=== PATIENT | male | born 1950 | race Caucasian/White ===

== ENCOUNTER 2020-10-21 09:24 | Inpatient (IN) ==
[2020-10-21] MEDS ORDERED: 0.9 % SODIUM CHLORIDE 1,000 ML IV ONE ×2 (09:38→09:47)
[2020-10-21] MEDS ORDERED: IBUPROFEN 600 MG TABLET PO ONE (09:47)
[2020-10-21] MEDS ORDERED: LEVOFLOXACIN 750 MG/150 ML BAG IV ONE (09:47)
[2020-10-21] MEDS ORDERED: ACETAMINOPHEN 325 MG TABLET PO ONE (09:47)
[2020-10-21] MEDS ORDERED: IPRATROPIUM/ALBUTEROL 3 ML AMPUL.NEB NEB ONE (09:52)
[2020-10-21] MEDS ORDERED: DEXAMETHASONE 10 MG/ML VIAL IV ONE (09:52)
--- NOTE | 2020-10-21 09:59 | Emergency Department Note ---
Fever HPI General Chief Complaint: Fever Stated Complaint: fever Time Seen by Provider: 10/21/20 09:42 Source: patient, EMS, RN notes reviewed, old records reviewed and other (residential records) Mode of arrival: EMS Limitations: no limitations History of Present Illness HPI Narrative: Narrative: MD complaint: fever, malaise and weakness Onset (ago): day(s) (1) Maximum Temperature: 105.4 F Temperature Source: tympanic Context: recent procedure (Had second Covid shot day prior to arrival) Associated symptoms: Reports chills, rigors, myalgias, cough, shortness of breath, nausea and confusion; Denies headache, rhinorrhea, nasal congestion, sore throat, stiff neck, chest pain, abdominal pain, vomiting, diarrhea, dysuria, rash, night sweats and weight loss Improves with: nothing Worsens with: in morning Treatments prior to arrival fever: none Related Data Home Medications Medication Instructions Recorded Confirmed acetaminophen [Tylenol] 650 mg PO Q6H PRN 10/21/20 10/21/20 apixaban [Eliquis] 2.5 mg PO BID 10/21/20 10/21/20 baclofen 5 mg PO QDAY 10/21/20 10/21/20 bisacodyl [Dulcolax (bisacodyl)] 10 mg NC ONCE 10/21/20 10/21/20 carvedilol 3.125 mg PO DAILY 10/21/20 10/21/20 cholecalciferol (vitamin D3) 25 mcg PO QDAY 10/21/20 10/21/20 [Vitamin D3] furosemide [Lasix] 40 mg PO BID 10/21/20 10/21/20 glucagon 1 mg PRN PRN 10/21/20 10/21/20 hydrocodone-acetaminophen 1 tab PO PRN PRN 10/21/20 10/21/20 insulin lispro 0 unit SUBCUT PRN PRN 10/21/20 10/21/20 ipratropium-albuterol [Combivent 1 puff INHALATION PRN PRN 10/21/20 10/21/20 Respimat] lisinopril 2.5 mg PO QDAY 10/21/20 10/21/20 magnesium hydroxide [Milk of 30 ml PO PRN PRN 10/21/20 10/21/20 Magnesia] melatonin 6 mg PO HS 10/21/20 10/21/20 metformin 500 mg PO BID 10/21/20 10/21/20 ondansetron HCl [Zofran] 8 mg PO Q8H PRN 10/21/20 10/21/20 paroxetine HCl 30 mg PO DAILY 10/21/20 10/21/20 ropinirole 4 mg PO TID 10/21/20 10/21/20 sodium phosphates [Fleet Enema] 118 ml NC ONCE 10/21/20 10/21/20 sodium polystyrene sulfonate 15 g PO QDAY 10/21/20 10/21/20 tamsulosin 0.4 mg PO QDAY 10/21/20 10/21/20 Allergies Allergy/AdvReac Type Severity Reaction Status Date / Time codeine Allergy Verified 10/21/20 09:38 Penicillins Allergy Verified 10/21/20 09:38 Review of Systems ROS ROS Narrative: Narrative: All systems ED: reviewed and negative except as stated. [facility] Narrative Patient History Narrative: Narrative: Medical/Surgical/Family History All Active Problems (Updated 10/21/20 @ 10:56 by Arthur Danielson MD) Pneumonia due to 2019 novel coronavirus (Acute) Social History Smoking Status: Never smoker Exam Narrative Narrative: Narrative: General Limitations: no limitations General appearance: Present alert, in distress and malaise Head Head: Present atraumatic and normocephalic Eye Eye: Present normal appearance, PERRL and EOMI ENT ENT: Present normal exam and mucous membranes dry Neck Neck: Present normal inspection and full ROM Chest Chest: Present normal inspection; Absent tenderness Respiratory Respiratory: Present respiratory distress, rales/crackles, wheezes and decreased breath sounds Cardiovascular Cardiovascular: Present regular rate, normal rhythm and systolic murmur Adbominal Abdominal: Present soft; Absent distention, tenderness, guarding and rebound Extremities Extremities: Present normal inspection, full ROM, pedal edema and pretibial edema; Absent tenderness and normal capillary refill Back Back: Present normal inspection; Absent CVA tenderness (R) and CVA tenderness (L) Neurological Neurological: Present alert Psychiatric Psychiatric: Present normal affect and normal mood Skin Skin: Present hot, dry and rash Course Vital Signs Vital signs: Vital Signs Temperature 105.4 F H 10/21/20 09:28 Pulse Rate 99 H 10/21/20 09:28 Respiratory Rate 28 H 10/21/20 09:28 Blood Pressure 128/73 10/21/20 09:28 Pulse Oximetry (%) 92 10/21/20 09:28 Temperature 102.8 F H 10/21/20 10:45 Pulse Rate 73 10/21/20 11:45 Respiratory Rate 34 H 10/21/20 11:45 Blood Pressure 96/75 10/21/20 11:45 Pulse Oximetry (%) 91 10/21/20 11:45 MDM MDM Narrative Medical decision making narrative: Narrative: 70-year-old male with high fever positive Covid pneumonia on chest x-ray with a normal white count. History of congestive heart failure with mildly elevated BNP. Patient has an elevated troponin at 0.06 with suspect this is demand leakage as opposed to an ischemic event. Patient is defervesced seen with his fever has been treated with Tylenol Motrin IV fluids and dexamethasone. Patient will be admitted Differential Diagnosis Differential Diagnosis: Covid pneumonia, congestive heart failure, community- acquired pneumonia. Medical Records Medical records reviewed: Yes I reviewed the patient's medical records. Lab Data Lab results reviewed: Yes I reviewed the patient's lab results. Result diagrams: 10/21/20 09:51 10/21/20 09:51 Labs: Lab Results 10/21/20 10/21/20 10/21/20 Range/Units 09:51 09:51 09:51 WBC 6.4 (4.5-11.0) K/mcL RBC 3.72 L (4.50-5.90) M/mcL Hgb 10.7 L (13.5-16.5) g/dL Hct 34.3 L (41.0-55.0) % MCV 92.2 (80.0-100.0) fL MCH 28.8 (26.0-34.0) pg MCHC 31.2 (31.0-36.0) g/dL RDW 15.6 H (11.5-14.5) % Plt Count 126 L (140-440) K/mcL MPV 10.9 H (7.4-10.4) fL Neut % (Auto) 76.4 (38.0-78.0) % Lymph % (Auto) 18.2 (15.0-49.0) % [place] % (Auto) 5.1 (1.0-12.0) % Eos % (Auto) 0 (0.0-7.0) % Baso % (Auto) 0.3 (0.0-2.0) % Lymph # (Auto) 1.17 L (1.50-4.80) K/mcL [place] # (Auto) 0.33 (0.10-0.90) K/mcL Eos # (Auto) 0 (0.00-0.70) K/mcL Baso # (Auto) 0.02 (0.00-0.20) K/mcL Absolute Neutrophils 4.90 (1.80-8.00) K/mcL PT 17.0 H (11.9-14.5) sec INR 1.3 H (0.9-1.1) VBG Lactic Acid (0.5-2.0) mmol/L Sodium 136 (133-145) mmol/L Potassium 4.2 (3.3-5.1) mmol/L Chloride 99 (96-108) mmol/L Carbon Dioxide 27 (22-30) mmol/L Anion Gap 10.0 (8.0-16.0) BUN 24 H (8-23) mg/dL Creatinine 1.4 H (0.7-1.2) mg/dL GFR Calculation 51 Glucose 157 H (70-105) mg/dL Calcium 8.6 (8.6-10.4) mg/dL Total Bilirubin 0.7 (0.1-1.0) mg/dL AST 12 (<40) U/L ALT 8 (<40) U/L Alkaline Phosphatase 76 (39-117) U/L Troponin T (<0.03) ng/mL NT-Pro-B Natriuret Pep 2323.0 H (<125.0) pg/mL Total Protein 6.7 (5.9-8.4) gm/dL Albumin 3.1 L (3.2-5.2) gm/dL Globulin 3.6 (2.2-3.7) gm/dL Albumin/Globulin Ratio 0.9 L (1.0-2.3) 10/21/20 10/21/20 Range/Units 09:51 09:51 WBC (4.5-11.0) K/mcL RBC (4.50-5.90) M/mcL Hgb (13.5-16.5) g/dL Hct (41.0-55.0) % MCV (80.0-100.0) fL MCH (26.0-34.0) pg MCHC (31.0-36.0) g/dL RDW (11.5-14.5) % Plt Count (140-440) K/mcL MPV (7.4-10.4) fL Neut % (Auto) (38.0-78.0) % Lymph % (Auto) (15.0-49.0) % [place] % (Auto) (1.0-12.0) % Eos % (Auto) (0.0-7.0) % Baso % (Auto) (0.0-2.0) % Lymph # (Auto) (1.50-4.80) K/mcL [place] # (Auto) (0.10-0.90) K/mcL Eos # (Auto) (0.00-0.70) K/mcL Baso # (Auto) (0.00-0.20) K/mcL Absolute Neutrophils (1.80-8.00) K/mcL PT (11.9-14.5) sec INR (0.9-1.1) VBG Lactic Acid 1.2 (0.5-2.0) mmol/L Sodium (133-145) mmol/L Potassium (3.3-5.1) mmol/L Chloride (96-108) mmol/L Carbon Dioxide (22-30) mmol/L Anion Gap (8.0-16.0) BUN (8-23) mg/dL Creatinine (0.7-1.2) mg/dL GFR Calculation Glucose (70-105) mg/dL Calcium (8.6-10.4) mg/dL Total Bilirubin (0.1-1.0) mg/dL AST (<40) U/L ALT (<40) U/L Alkaline Phosphatase (39-117) U/L Troponin T 0.06 H* (<0.03) ng/mL NT-Pro-B Natriuret Pep (<125.0) pg/mL Total Protein (5.9-8.4) gm/dL Albumin (3.2-5.2) gm/dL Globulin (2.2-3.7) gm/dL Albumin/Globulin Ratio (1.0-2.3) ED POC Tests ED POC Tests: JET - Influenza A Negative JET - Influenza B Negative JET - SARS Antigen Positive Radiology Data Radiology results reviewed: Yes I reviewed the patient's radiology results. Radiology results narrative: CLINICAL INFORMATION: FEVER COMPARISON: 07/10/2010 FINDINGS: Heart is mildly enlarged. Mediastinum is unremarkable. Pulmonary vessels are mildly congested and the upper lobes. Equivocal interstitial edema appreciated. Small bibasilar infiltrates noted. No effusions IMPRESSION: Mild CHF Small bibasilar infiltrates Interpreted and Authenticated by: Singh Byrne 10/21/20 EKG Data EKG #1: EKG attestation: Yes I reviewed and interpreted this EKG. EKG shows normal: sinus rhythm Rate: normal (83) Rhythm: NSR [place]/QRS: LAHB/LAFB Voltage: decreased voltage throughout Interpretation: nonspecific ST-T wave changes Pulse Oximetry Data Pulse Ox %: 90 Interpretation: 90% on room air hypoxic. Discharge Plan Patient/Caregiver Discharge Instructions Pt seen by CLARIFIER/PA only: No Clinical Impression: Pneumonia due to 2019 novel coronavirus Patient Disposition: Xfer As Inpt ([facility]) Follow up with: No,PCP [Referring] - Prescriptions: No Action Combivent Respimat 20-100 mcg/actuation Mist 1 puff INHALATION PRN PRN (Reason: Wheezing) RF: 0 furosemide [Lasix] 40 mg Tablet 40 mg PO BID RF: 0 hydrocodone-acetaminophen 5-325 mg tablet 1 tab PO PRN PRN (Reason: Pain) RF: 0 carvedilol 3.125 mg tablet 3.125 mg PO DAILY RF: 0 sodium polystyrene sulfonate 15 gram/60 mL Suspension 15 g PO QDAY RF: 0 paroxetine HCl 30 mg tablet 30 mg PO DAILY RF: 0 baclofen 5 mg Tablet 5 mg PO QDAY RF: 0 lisinopril 2.5 mg Tablet 2.5 mg PO QDAY RF: 0 ropinirole 4 mg Tablet 4 mg PO TID RF: 0 Fleet Enema 19-7 gram/118 mL Enema 118 ml NC ONCE RF: 0 bisacodyl [Dulcolax (bisacodyl)] 10 mg Suppository 10 mg NC ONCE RF: 0 magnesium hydroxide [Milk of Magnesia] 400 mg/5 mL Suspension 30 ml PO PRN PRN (Reason: Constipation) RF: 0 glucagon 1 mg Kit 1 mg PRN PRN (Reason: blood sugar) RF: 0 metformin 500 mg Tablet 500 mg PO BID RF: 0 ondansetron HCl [Zofran] 8 mg Tablet 8 mg PO Q8H PRN (Reason: Nausea) RF: 0 acetaminophen [Tylenol] 325 mg Tablet 650 mg PO Q6H PRN (Reason: Pain) RF: 0 tamsulosin 0.4 mg Capsule 0.4 mg PO QDAY RF: 0 insulin lispro 100 unit/mL Cartridge 0 unit SUBCUT PRN PRN (Reason: blood sugar) RF: 0 cholecalciferol (vitamin D3) [Vitamin D3] 25 mcg (1,000 unit) Tablet 25 mcg PO QDAY RF: 0 Eliquis 2.5 mg Tablet 2.5 mg PO BID RF: 0 melatonin 12 mg Tablet 6 mg PO HS RF: 0
--- NOTE | 2020-10-21 10:42 | XRay Report ---
CLINICAL INFORMATION: FEVER COMPARISON: 07/10/2010 FINDINGS: Heart is mildly enlarged. Mediastinum is unremarkable. Pulmonary vessels are mildly congested and the upper lobes. Equivocal interstitial edema appreciated. Small bibasilar infiltrates noted. No effusions IMPRESSION: Mild CHF Small bibasilar infiltrates Interpreted and Authenticated by: Singh Byrne 10/21/20
[2020-10-21 10:47] LABS: Basophils # (Auto) 0.02 K/mcL (0.00-0.20); Basophils % (Auto) 0.3 % (0.0-2.0); Eosinophils # (Auto) 0 K/mcL (0.00-0.70); Eosinophils % (Auto) 0 % (0.0-7.0); Hematocrit 34.3 % (41.0-55.0); Hemoglobin 10.7 g/dL (13.5-16.5); Lymphocytes # (Auto) 1.17 K/mcL (1.50-4.80); Lymphocytes % (Auto) 18.2 % (15.0-49.0); Mean Cell Volume 92.2 fL (80.0-100.0); Mean Corpuscular HGB Conc 31.2 g/dL (31.0-36.0); Mean Platelet Volume 10.9 fL (7.4-10.4); Monocytes # (Auto) 0.33 K/mcL (0.10-0.90); Monocytes % (Auto) 5.1 % (1.0-12.0); Neutrophils % (Auto) 76.4 % (38.0-78.0); Platelet Count 126 K/mcL (140-440); RBC 3.72 M/mcL (4.50-5.90); Red Cell Distribution Width 15.6 % (11.5-14.5); WBC 6.4 K/mcL (4.5-11.0)
[2020-10-21 10:57] LABS: INR 1.3 (0.9-1.1)
[2020-10-21 11:10] LABS: ALT/SGPT 8 U/L (<40); AST/SGOT 12 U/L (<40); Albumin 3.1 gm/dL (3.2-5.2); Albumin/Globulin Ratio 0.9 (1.0-2.3); Alkaline Phosphatase 76 U/L (39-117); Bilirubin,Total 0.7 mg/dL (0.1-1.0); Blood Urea Nitrogen 24 mg/dL (8-23); Calcium 8.6 mg/dL (8.6-10.4); Carbon Dioxide 27 mmol/L (22-30); Chloride 99 mmol/L (96-108); Globulin 3.6 gm/dL (2.2-3.7); Glomerular Filtration Rate 51; Glucose 157 mg/dL (70-105)
--- NOTE | 2020-10-21 12:01 | Internal Med History&Physical ---
HPI History of Present Illness Patient information: Note initiated : 10/21/20 at 11:58 am Service Date, if different from initiated Date: [] Patient: Chente Whitfield a 70 y/o M admitted on for fever. Chief Complaint: Increasing shortness of breath/fever and confusion History of present illness: Mr. Whitfield is a 70 year old M resident of [facility] who presents to the ER with increasing weakness confusion, failure to thrive and high-grade fever. Initial work-up was consistent with Covid pneumonia, patient was started on steroids/bronchodilators/crystalloids and subsequently hospitalist service consulted. Patient is currently on 2 L oxygen maintaining sats 95. T-max 105.4. Troponin I 06, BNP 2323, initial GCS 7 At the time of my evaluation patient remains groggy and drowsy. Unable to provide history. Most of the history was obtained from review of medical records and ER physician. From review of medical records patient carries a history of chronic lymphedema/CKD stage III/DJD/HTN/DM type II/anxiety disorder/BPH Review of systems 10 point review system was attempted but could not performed PFSH PFSH All Active Problems (Updated 10/21/20 @ 10:56 by Arthur Danielson MD) Pneumonia due to 2019 novel coronavirus (Acute) MEDS/ALLERGIES Home Medications and Allergies Home Medications Medication Instructions Recorded Confirmed Type acetaminophen [Tylenol] 650 mg PO Q6H PRN 10/21/20 10/21/20 History apixaban [Eliquis] 2.5 mg PO BID 10/21/20 10/21/20 History baclofen 5 mg PO QDAY 10/21/20 10/21/20 History bisacodyl [Dulcolax (bisacodyl)] 10 mg NC ONCE 10/21/20 10/21/20 History carvedilol 3.125 mg PO DAILY 10/21/20 10/21/20 History cholecalciferol (vitamin D3) 25 mcg PO QDAY 10/21/20 10/21/20 History [Vitamin D3] furosemide [Lasix] 40 mg PO BID 10/21/20 10/21/20 History glucagon 1 mg PRN PRN 10/21/20 10/21/20 History hydrocodone-acetaminophen 1 tab PO PRN PRN 10/21/20 10/21/20 History insulin lispro 0 unit SUBCUT PRN PRN 10/21/20 10/21/20 History ipratropium-albuterol [Combivent 1 puff INHALATION PRN PRN 10/21/20 10/21/20 History Respimat] lisinopril 2.5 mg PO QDAY 10/21/20 10/21/20 History magnesium hydroxide [Milk of 30 ml PO PRN PRN 10/21/20 10/21/20 History Magnesia] melatonin 6 mg PO HS 10/21/20 10/21/20 History metformin 500 mg PO BID 10/21/20 10/21/20 History ondansetron HCl [Zofran] 8 mg PO Q8H PRN 10/21/20 10/21/20 History paroxetine HCl 30 mg PO DAILY 10/21/20 10/21/20 History ropinirole 4 mg PO TID 10/21/20 10/21/20 History sodium phosphates [Fleet Enema] 118 ml NC ONCE 10/21/20 10/21/20 History sodium polystyrene sulfonate 15 g PO QDAY 10/21/20 10/21/20 History tamsulosin 0.4 mg PO QDAY 10/21/20 10/21/20 History Allergies Allergy/AdvReac Type Severity Reaction Status Date / Time Penicillins AdvReac Intermediate Verified 10/21/20 14:44 codeine AdvReac Mild Verified 10/21/20 14:44 EXAM Constitutional Vitals: Temp Pulse Resp BP Pulse Ox 100.8 F H 73 34 H 96/75 91 10/21/20 11:54 10/21/20 11:45 10/21/20 11:45 10/21/20 11:45 10/21/20 11:45 Confused and drowsy Head normocephalic Oral cavity dry No ear nose discharge Eye movement symmetrical Neck supple no lymphadenopathy S1-S2 occasionally irregular Nonlabored breathing Nondistended nontender abdomen Lower extremity bilateral lymphedema, no cyanosis Skin no suspicious lesion Psych no hallucination Neuro drowsy, unable to perform DATA Data Completed and Pending Labs: Labs from last 24 hours 10/21/20 10/21/20 10/21/20 09:51 09:51 09:51 WBC RBC Hgb Hct MCV MCH MCHC RDW Plt Count MPV Neut % (Auto) Lymph % (Auto) [place] % (Auto) Eos % (Auto) Baso % (Auto) Lymph # (Auto) [place] # (Auto) Eos # (Auto) Baso # (Auto) Absolute Neutrophils PT INR VBG Lactic Acid 1.2 Sodium 136 Potassium 4.2 Chloride 99 Carbon Dioxide 27 Anion Gap 10.0 BUN 24 H Creatinine 1.4 H GFR Calculation 51 Glucose 157 H Calcium 8.6 Total Bilirubin 0.7 AST 12 ALT 8 Alkaline Phosphatase 76 Troponin T 0.06 H* NT-Pro-B Natriuret Pep 2323.0 H Total Protein 6.7 Albumin 3.1 L Globulin 3.6 Albumin/Globulin Ratio 0.9 L 10/21/20 10/21/20 09:51 09:51 WBC 6.4 RBC 3.72 L Hgb 10.7 L Hct 34.3 L MCV 92.2 MCH 28.8 MCHC 31.2 RDW 15.6 H Plt Count 126 L MPV 10.9 H Neut % (Auto) 76.4 Lymph % (Auto) 18.2 [place] % (Auto) 5.1 Eos % (Auto) 0 Baso % (Auto) 0.3 Lymph # (Auto) 1.17 L [place] # (Auto) 0.33 Eos # (Auto) 0 Baso # (Auto) 0.02 Absolute Neutrophils 4.90 PT 17.0 H INR 1.3 H VBG Lactic Acid Sodium Potassium Chloride Carbon Dioxide Anion Gap BUN Creatinine GFR Calculation Glucose Calcium Total Bilirubin AST ALT Alkaline Phosphatase Troponin T NT-Pro-B Natriuret Pep Total Protein Albumin Globulin Albumin/Globulin Ratio A/P Narrative A/P Narrative: * COVID-19 pneumonia-inpatient admission/initiate remdesivir/dexamethasone, thrombosis prophylaxis/coag and inflammatory markers, maintain COVID-19 precautions. Empiric antibiotic coverage * Acute hypoxic respiratory failure secondary to Covid pneumonia/history of CHF. Continue with low flow oxygen/pulmonary toilet and transition to noninvasive mechanical ventilation if deteriorating status/worsening oxygenation on ABG/interval chest imaging. Gentle diuresis * Poorly controlled diabetes type 2 continue basal prandial insulin/CC diet * Anticoagulation continue apixaban * Hypertension/nursing lymphedema -continue home dose Coreg/DINESH inhibitor/diuretics * History of COPD continue bronchodilators * Anxiety disorder-hold paroxetine due to QT prolongation until patient off azithromycin * Full code Plan * Inpatient admission with close monitoring and COVID-19 precautions * Noninvasive mechanical ventilation if indicated * Serial imaging/ABG if deteriorating respiratory status/coag inflammatory markers * Remdesivir/dexamethasone/empiric antibiotics/thrombosis prophylaxis * Pre-existing medical condition management on home meds * Directed therapies/nutrition support/early mobilization * Discharge planning Time Spent With Patient Time: Total time spent is greater than 50% in coordination of care (as documented) at patient's floor/unit and/or counseling patient:
[2020-10-21] MEDS ORDERED: ACETAMINOPHEN 650 MG/65 ML BAG IV PRN (13:49)
[2020-10-21] MEDS ORDERED: POTASSIUM CHLORIDE 20 MEQ PACKET PO PRN (13:49)
[2020-10-21] MEDS ORDERED: MAGNESIUM HYDROXIDE 30 ML ORAL.SUSP PO PRN ×2 (13:49→14:00)
[2020-10-21] MEDS ORDERED: ACETAMINOPHEN 325 MG TABLET PO PRN (13:49)
[2020-10-21] MEDS ORDERED: MAGNESIUM SULFATE 2 GM/50 ML BAG IV PRN (13:49)
[2020-10-21] MEDS ORDERED: DEXTROSE 50% 50 ML VIAL IV PRN (13:49)
[2020-10-21] MEDS ORDERED: ONDANSETRON 4 MG ODT TABLET SL PRN (13:49)
[2020-10-21] MEDS ORDERED: BISACODYL 10 MG SUPP.RECT PR PRN (13:49)
[2020-10-21] MEDS ORDERED: BISACODYL 10 MG SUPP.RECT PR SCH (13:49)
[2020-10-21] MEDS ORDERED: HYDROcodone/APAP 5/325MG TABLET PO PRN (13:49)
[2020-10-21] MEDS ORDERED: METOPROLOL TARTRATE 5 MG/5 ML VIAL IV PRN (13:49)
[2020-10-21] MEDS ORDERED: ONDANSETRON 4 MG/2 ML VIAL IV PRN (13:49)
[2020-10-21] MEDS ORDERED: POLYETHYLENE GLYCOL 3350 17 GM PACKET PO PRN (13:49)
[2020-10-21] MEDS ORDERED: NEUTRA PHOS 1 PACKET PO PRN (13:49)
[2020-10-21] MEDS ORDERED: IPRATROPIUM/ALBUTEROL SULFATE 1 PUFF INHALER INH PRN ×2 (13:49→14:00)
[2020-10-21] MEDS ORDERED: POTASSIUM CHLORIDE 40 MEQ in DEXTROSE 5% IN WATER 500 ML IV PRN (13:49)
[2020-10-21] MEDS ORDERED: guaiFENesin/CODEINE 10 ML UDC PO PRN (13:49)
[2020-10-21] MEDS ORDERED: DEXTROSE 31 GM ORAL.SUSP PO PRN (13:49)
[2020-10-21] MEDS ORDERED: REMDESIVIR 200 MG in 0.9 % SODIUM CHLORIDE 250 ML IV ONE (15:00)
[2020-10-21 15:07] LABS: C-Reactive Protein 9.6 mg/dL (0.03-0.80)
[2020-10-21 15:17] LABS: Ferritin 104.2 ng/mL (30.0-400.0)
[2020-10-21] MEDS: AZITHROMYCIN 500 MG in DEXTROSE 5% IN WATER 250 ML IV SCH (16:22)
[2020-10-21] MEDS: 0.9 % SODIUM CHLORIDE 10 ML SYRINGE IV SCH ×3 (16:23→21:39)
[2020-10-21] MEDS: INSULIN LISPRO 1 UNIT/0.01 ML UNIT SQ SCH ×2 (18:18→21:38)
[2020-10-21] MEDS: cefTRIAXone 2 GM in DEXTROSE 5% IN WATER 50 ML IV SCH (18:18)
[2020-10-21] MEDS: rOPINIRole 1 MG TABLET PO SCH (18:18)
[2020-10-21] MEDS: 0.9 % SODIUM CHLORIDE 500 ML IV SCH (18:54)
[2020-10-21] MEDS: DOCUSATE SODIUM 100 MG CAPSULE PO SCH (21:38)
[2020-10-21] MEDS: FUROSEMIDE 40 MG TABLET PO SCH (21:38)
[2020-10-21] MEDS: SENNOSIDES/DOCUSATE SODIUM 1 TAB TABLET PO SCH (21:38)
[2020-10-21] MEDS: MELATONIN 3 MG TABLET PO SCH (21:39)
[2020-10-21] MEDS: APIXABAN 5 MG TABLET PO SCH (21:39)
[2020-10-22] MEDS: rOPINIRole 1 MG TABLET PO SCH ×4 (00:11→21:56)
[2020-10-22] MEDS: 0.9 % SODIUM CHLORIDE 10 ML SYRINGE IV SCH ×3 (06:19→21:56)
[2020-10-22] MEDS: INSULIN LISPRO 1 UNIT/0.01 ML UNIT SQ SCH ×4 (07:47→21:56)
[2020-10-22] MEDS: TAMSULOSIN 0.4 MG CAPSULE PO SCH (08:48)
[2020-10-22] MEDS: LISINOPRIL 2.5 MG TABLET PO SCH ×2 (08:48→10:45)
[2020-10-22] MEDS: MULTIVIT,THER IRON,CA,FA & MIN 1 TABLET PO SCH (08:48)
[2020-10-22] MEDS: APIXABAN 5 MG TABLET PO SCH ×2 (08:49→21:55)
[2020-10-22] MEDS: sitaGLIPtin 100 MG TABLET PO SCH (08:50)
[2020-10-22] MEDS: DOCUSATE SODIUM 100 MG CAPSULE PO SCH ×2 (08:50→21:55)
[2020-10-22] MEDS: cefTRIAXone 2 GM in DEXTROSE 5% IN WATER 50 ML IV SCH (08:51)
[2020-10-22] MEDS: FUROSEMIDE 40 MG TABLET PO SCH ×2 (08:51→21:54)
[2020-10-22] MEDS: VITAMIN D3 1,000 UNIT TABLET PO SCH (08:51)
[2020-10-22] MEDS: BACLOFEN 10 MG TABLET PO SCH (08:51)
[2020-10-22] MEDS ORDERED: DEXAMETHASONE 4 MG TABLET PO SCH (09:00)
[2020-10-22] MEDS: AZITHROMYCIN 500 MG in DEXTROSE 5% IN WATER 250 ML IV SCH (10:45)
[2020-10-22] MEDS: CARVEDILOL 3.125 MG TABLET PO SCH (10:45)
--- NOTE | 2020-10-22 11:13 | Internal Med Progress Note ---
SUBJECTIVE Subjective Patient information: Note initiated : 10/22/20 at 11:12 am Service Date, if different from initiated Date: [] Patient: Chente Whitfield 70 y/o M admitted on 10/21/20 for Fever. Chief Complaint: [] Interval history: Mr. Whitfield is a 70 year old M resident of [facility] who presents to the ER with increasing weakness confusion, failure to thrive and high-grade fever. Initial work-up was consistent with Covid pneumonia, patient was started on steroids/bronchodilators/crystalloids and subsequently hospitalist service consulted. Patient is currently on 2 L oxygen maintaining sats 95. T-max 105.4. Troponin I 06, BNP 2323, initial GCS 7 At the time of my evaluation patient remains groggy and drowsy. Unable to provide history. Most of the history was obtained from review of medical records and ER physician. From review of medical records patient carries a history of chronic lymphedema/CKD stage III/DJD/HTN/DM type II/anxiety disorder/BPH 5/6-patient doing better. No overnight events. Currently on 1-1/2 L oxygen. Remdesivir discontinued. Continues steroids/diuretics/antibiotic coverage in setting of pneumonia. Echocardiogram 09/30- 55% EF. Mycoplasma and strep pneumo negative. Clinically improving. Continue gentle diuresis/COVID-19 treatment. Wean oxygen as tolerated Constitutional Vitals: Vital Signs Temp Pulse Resp BP Pulse Ox 97.3 F 68 14 110/52 98 10/22/20 08:00 10/22/20 08:00 10/22/20 08:00 10/22/20 08:00 10/22/20 08:00 Period Temp Pulse Resp BP Sys/Hill Pulse Ox Last 24 Hr 95.0 F-100.8 F 57-80 14-34 90-160/45-90 86-98 Intake and Output 10/21/20 10/22/20 10/22/20 21:59 05:59 13:59 Intake Total 670 250 290 Output Total 1 1 250 Balance 669 249 40 Weight 92.941 kg Alert oriented Nonlabored breathing No anxiety 1.5 years oxygen Intake & Output: Intake & Output 10/21/20 10/22/20 10/22/20 21:59 05:59 13:59 Intake Total 670 250 290 Output Total 1 1 250 Balance 669 249 40 Weight 92.941 kg Intake: IV 550 50 Zithromax 500 mg In Dextrose 5% 250 in Water 250 ml @ 250 mls/hr IV Q24H [facility] Rx#:[id number] Veklury 200 mg In Sodium 250 Chloride 0.9% 250 ml @ 500 mls/ hr IV ONCE ONE Rx#:[id number] Rocephin 2 gm In Dextrose 5% in 50 50 Water 50 ml @ 100 mls/hr IV Q24H [facility] Rx#:[id number] Oral 120 250 240 Output: Void Amount 250 # of times incontinent of urine 1 1 Other: Meal Breakfast Percent of Meal Consumed 50% Feeding Ability Independent Urine Appearance Clear Urine Color Bright Yellow Urine Odor Strong Normal OBJ DATA Labs CBC & Chem 7: 10/21/20 09:51 10/21/20 09:51 Labs: Abnormal Lab Results 10/21/20 10/21/20 10/21/20 09:51 09:51 09:51 RBC Hgb Hct RDW Plt Count MPV Lymph # (Auto) PT INR BUN 24 H Creatinine 1.4 H Glucose 157 H Troponin T 0.06 H* C-Reactive Protein 9.60 H NT-Pro-B Natriuret Pep 2323.0 H Albumin 3.1 L Albumin/Globulin Ratio 0.9 L 10/21/20 10/21/20 09:51 09:51 RBC 3.72 L Hgb 10.7 L Hct 34.3 L RDW 15.6 H Plt Count 126 L MPV 10.9 H Lymph # (Auto) 1.17 L PT 17.0 H INR 1.3 H BUN Creatinine Glucose Troponin T C-Reactive Protein NT-Pro-B Natriuret Pep Albumin Albumin/Globulin Ratio Meds: Medications Acetaminophen (Acetaminophen 325 Mg Tablet) 650 mg PO Q4-6HP PRN; Protocol PRN Reason: Per Pain Protocol/Fever > 101 Hydrocodone Bitart/Acetaminophen (Hydrocodone/Apap 5/325mg Tablet) 1 tab PO PRN PRN; Protocol PRN Reason: Pain Albuterol/Ipratropium (Ipratropium/Albuterol Sulfate 1 Puff Inhaler) 1 puff INH Q4-6HP PRN PRN Reason: Wheezing Apixaban (Apixaban 5 Mg Tablet) 2.5 mg PO BID [facility] Last Admin: 10/22/20 08:49 Dose: 2.5 mg Documented by: Baclofen (Baclofen 10 Mg Tablet) 5 mg PO QDAY [facility] Last Admin: 10/22/20 08:51 Dose: 5 mg Documented by: Bisacodyl (Bisacodyl 10 Mg Supp.Rect) 10 mg MS Q2-3DAYS PRN PRN Reason: Constipation Carvedilol (Carvedilol 3.125 Mg Tablet) 3.125 mg PO QAC [facility] Last Admin: 10/22/20 10:45 Dose: 3.125 mg Documented by: Dexamethasone (Dexamethasone 4 Mg Tablet) 6 mg PO DAILY [facility] Last Admin: 10/22/20 08:49 Dose: 6 mg Documented by: Dextrose (Dextrose 50% 50 Ml Vial) 0 ml IV UD PRN PRN Reason: Hypoglycemia Diagnostic Test (Pha) (Accu-Chek 1 Each Strip) 1 each FS ACHS [facility] Last Admin: 10/22/20 07:47 Dose: 1 each Documented by: Docusate Sodium (Docusate Sodium 100 Mg Capsule) 100 mg PO BID [facility] Last Admin: 10/22/20 08:50 Dose: 100 mg Documented by: Furosemide (Furosemide 40 Mg Tablet) 40 mg PO BID [facility] Last Admin: 10/22/20 08:51 Dose: 40 mg Documented by: Glucose (Dextrose 31 Gm Oral.Susp) 15 gm PO PRN PRN PRN Reason: Hypoglycemia Guaifenesin/Codeine Phosphate (Guaifenesin/Codeine 10 Ml Udc) 10 ml PO Q4HP PRN PRN Reason: Cough Azithromycin 500 mg/ Dextrose 250 mls @ 250 mls/hr IV Q24H [facility]; Protocol Stop: 10/23/20 16:59 Last Admin: 10/22/20 10:45 Dose: 250 mls/hr Documented by: Potassium Chloride 40 meq/ (Dextrose) 520 mls @ 130 mls/hr IV UD PRN PRN Reason: K+ = or < 3.5 Magnesium Sulfate (Magnesium Sulfate) 2 gm in 50 mls @ 50 mls/hr IV UD PRN PRN Reason: MG = or < 1.7 Ceftriaxone Sodium 2 gm/ (Dextrose) 50 mls @ 100 mls/hr IV Q24H [facility]; Protocol Last Infusion: 10/22/20 09:25 Dose: Infused Documented by: Acetaminophen (Ofirmev) 650 mg in 65 mls @ 130 mls/hr IV Q6HP PRN; Protocol PRN Reason: Per Pain Protocol/Fever > 101 Sodium Chloride (Sodium Chloride 0.9%) 500 mls @ 20 mls/hr IV .Q24H [facility] Last Admin: 10/21/20 18:54 Dose: 20 mls/hr Documented by: Insulin Human Lispro (Insulin Lispro 1 Unit/0.01 Ml Unit) 0 unit SQ ACHS [facility]; Protocol Last Admin: 10/22/20 07:47 Dose: Not Given Documented by: Iron Carb/Multivit/[place]/Folic Acid (Multivit,Ther Iron,Ca,Fa & Min 1 Tablet) 1 tab PO DAILY [facility] Last Admin: 10/22/20 08:48 Dose: 1 tab Documented by: Lisinopril (Lisinopril 2.5 Mg Tablet) 2.5 mg PO DAILY [facility] Last Admin: 10/22/20 10:45 Dose: 2.5 mg Documented by: Magnesium Hydroxide (Magnesium Hydroxide 30 Ml Oral.Susp) 30 ml PO DAILYP PRN PRN Reason: Constipation Melatonin (Melatonin 3 Mg Tablet) 6 mg PO [facility] Last Admin: 10/21/20 21:39 Dose: Not Given Documented by: Metoprolol Tartrate (Metoprolol Tartrate 5 Mg/5 Ml Vial) 5 mg IV Q5M PRN PRN Reason: Heart Rate > 140 bpm Ondansetron HCl (Ondansetron 4 Mg Odt Tablet) 4 mg SL Q4-6HP PRN; Protocol PRN Reason: Nausea And Vomiting Ondansetron HCl (Ondansetron 4 Mg/2 Ml Vial) 4 mg IV Q4-6HP PRN; Protocol PRN Reason: Nausea And Vomiting Polyethylene Glycol (Polyethylene Glycol 3350 17 Gm Packet) 17 gm PO DAILYP PRN PRN Reason: Constipation Potassium Chloride (Potassium Chloride 20 Meq Packet) 40 meq PO DAILYP PRN PRN Reason: K+ < 3.5 Potassium/Phosphorus/Sodium (Neutra Phos 1 Packet) 2 packet PO DAILY PRN PRN Reason: PHOS <2.5 Ropinirole HCl (Ropinirole 1 Mg Tablet) 4 mg PO TID [facility] Last Admin: 10/22/20 08:48 Dose: 4 mg Documented by: Senna/Docusate Sodium (Sennosides/Docusate Sodium 1 Tab Tablet) 1 tab PO [facility] Last Admin: 10/21/20 21:38 Dose: 1 tab Documented by: Sitagliptin Phosphate (Sitagliptin 100 Mg Tablet) 100 mg PO DAILY [facility] Last Admin: 10/22/20 08:50 Dose: 100 mg Documented by: Sodium Chloride (0.9 % Sodium Chloride 10 Ml Syringe) 10 ml IV Q8 [facility] Last Admin: 10/22/20 06:19 Dose: Not Given Documented by: Tamsulosin HCl (Tamsulosin 0.4 Mg Capsule) 0.4 mg PO QDAY [facility] Last Admin: 10/22/20 08:48 Dose: 0.4 mg Documented by: Vitamin D (Vitamin D3 1,000 Unit Tablet) 1,000 unit PO QDAY [facility] Last Admin: 10/22/20 08:51 Dose: 1,000 unit Documented by: A/P Narrative A/P Narrative: * COVID-19 pneumonia-clinically improving on steroids/bronchodilators/supportive treatment and antibiotic coverage. Continue thrombosis prophylaxis * Acute hypoxic respiratory failure secondary to Covid pneumonia/coexisting CHF. Responding to diuretics. On low-flow oxygen. * Poorly controlled diabetes type 2 continue basal prandial insulin/CC diet * Anticoagulation continue apixaban * Hypertension/nursing lymphedema -stable on home dose Coreg/DINESH inhibitor/diuretics * History of COPD continue bronchodilators * Anxiety disorder-hold paroxetine due to QT prolongation until patient off azithromycin * Full code Plan * DC remdesivir * Wean oxygen as tolerated * Dexamethasone/bronchodilators/empiric antibiotics * Pre-existing medical condition management on home meds * Directed therapies/nutrition support/early mobilization * Discharge planning Time Spent With Patient Time: Total time spent is greater than 50% in coordination of care (as documented) at patient's floor/unit and/or counseling patient: QUALITY Stroke Symptom Onset Unknown: No VTE Deep Vein Thrombosis/Pulmonary Embolism Present on Admission: No
[2020-10-22 11:21] LABS: Appearance,Urine CLEAR (Clear); Bilirubin,Urine Negative (Negative); Color,Urine YELLOW; Culture Indicated,Urine No; Glucose,Urine (UA) Negative (Negative); Ketones,Urine Negative (Negative); Leukocyte Esterase,Urine Negative /ug (Negative); Nitrate,Urine Negative (Negative); Protein,Urine Negative (Negative); Specific Gravity,Urine 1.012 (1.000-1.035); Urine Blood Negative (Negative); Urobilinogen,Urine Negative
[2020-10-22] MEDS ORDERED: ONDANSETRON HCL 8 MG PO PRN (11:39)
[2020-10-22 12:57] LABS: Basophils # (Auto) 0.01 K/mcL (0.00-0.20); Basophils % (Auto) 0.1 % (0.0-2.0); Eosinophils # (Auto) 0 K/mcL (0.00-0.70); Eosinophils % (Auto) 0 % (0.0-7.0); Hematocrit 30.8 % (41.0-55.0); Hemoglobin 9.8 g/dL (13.5-16.5); Lymphocytes # (Auto) 0.74 K/mcL (1.50-4.80); Lymphocytes % (Auto) 9.4 % (15.0-49.0); Mean Cell Volume 90.3 fL (80.0-100.0); Mean Corpuscular HGB Conc 31.8 g/dL (31.0-36.0); Mean Platelet Volume 10.7 fL (7.4-10.4); Monocytes # (Auto) 0.42 K/mcL (0.10-0.90); Monocytes % (Auto) 5.4 % (1.0-12.0); Neutrophils % (Auto) 85.1 % (38.0-78.0); Platelet Count 127 K/mcL (140-440); RBC 3.41 M/mcL (4.50-5.90); Red Cell Distribution Width 14.9 % (11.5-14.5); WBC 7.9 K/mcL (4.5-11.0)
[2020-10-22 13:27] LABS: ALT/SGPT 8 U/L (<40); AST/SGOT 13 U/L (<40); Albumin 2.8 gm/dL (3.2-5.2); Albumin/Globulin Ratio 0.8 (1.0-2.3); Alkaline Phosphatase 64 U/L (39-117); Bilirubin,Direct < 0.2 mg/dL (0-0.3); Bilirubin,Total 0.2 mg/dL (0.1-1.0); Blood Urea Nitrogen 35 mg/dL (8-23); Calcium 8.9 mg/dL (8.6-10.4); Carbon Dioxide 24 mmol/L (22-30); Chloride 98 mmol/L (96-108); Globulin 3.3 gm/dL (2.2-3.7); Glomerular Filtration Rate 55; Glucose 162 mg/dL (70-105); Lactate Dehydrogenase 129 U/L (135-225); Phosphorous 3.4 mg/dL (2.5-4.5); Triglycerides 80 mg/dL (<150); Uric Acid 8.7 mg/dL (2.5-8.0)
[2020-10-22] MEDS ORDERED: REMDESIVIR 100 MG in 0.9 % SODIUM CHLORIDE 250 ML IV SCH (15:00)
[2020-10-22] MEDS: 0.9 % SODIUM CHLORIDE 500 ML IV SCH (20:15)
[2020-10-22] MEDS: SENNOSIDES/DOCUSATE SODIUM 1 TAB TABLET PO SCH (21:54)
[2020-10-22] MEDS: MELATONIN 3 MG TABLET PO SCH (21:55)
[2020-10-22] MEDS: ATORVASTATIN 40 MG TABLET PO SCH (21:55)
[2020-10-22] MEDS: MOMETASONE INH SCH (21:56)
[2020-10-22] MEDS ORDERED: ALBUTEROL SULFATE 2.5 MG/3 ML NEBULIZER ONE (22:26)
[2020-10-22] MEDS: ALBUTEROL SULFATE 2.5 MG/3 ML NEBULIZER NEB PRN (22:30)
[2020-10-23 07:59] LABS: Basophils # (Auto) 0 K/mcL (0.00-0.20); Basophils % (Auto) 0 % (0.0-2.0); Eosinophils # (Auto) 0 K/mcL (0.00-0.70); Eosinophils % (Auto) 0 % (0.0-7.0); Hematocrit 30.9 % (41.0-55.0); Hemoglobin 9.6 g/dL (13.5-16.5); Lymphocytes # (Auto) 1.39 K/mcL (1.50-4.80); Lymphocytes % (Auto) 19.6 % (15.0-49.0); Mean Cell Volume 91.7 fL (80.0-100.0); Mean Corpuscular HGB Conc 31.1 g/dL (31.0-36.0); Mean Platelet Volume 11.2 fL (7.4-10.4); Monocytes # (Auto) 0.44 K/mcL (0.10-0.90); Monocytes % (Auto) 6.2 % (1.0-12.0); Neutrophils % (Auto) 74.2 % (38.0-78.0); Platelet Count 142 K/mcL (140-440); RBC 3.37 M/mcL (4.50-5.90); Red Cell Distribution Width 15.1 % (11.5-14.5); WBC 7.1 K/mcL (4.5-11.0)
[2020-10-23] MEDS: rOPINIRole 1 MG TABLET PO SCH ×3 (08:07→21:22)
[2020-10-23] MEDS: BACLOFEN 10 MG TABLET PO SCH (08:08)
[2020-10-23] MEDS: TAMSULOSIN 0.4 MG CAPSULE PO SCH (08:08)
[2020-10-23] MEDS: DOCUSATE SODIUM 100 MG CAPSULE PO SCH ×2 (08:08→21:27)
[2020-10-23] MEDS: LISINOPRIL 2.5 MG TABLET PO SCH (08:08)
[2020-10-23] MEDS: sitaGLIPtin 100 MG TABLET PO SCH (08:08)
[2020-10-23] MEDS: MULTIVIT,THER IRON,CA,FA & MIN 1 TABLET PO SCH (08:08)
[2020-10-23] MEDS: APIXABAN 5 MG TABLET PO SCH ×2 (08:08→21:25)
[2020-10-23] MEDS: ZINC SULFATE 50 MG CAPSULE PO SCH (08:09)
[2020-10-23] MEDS: CARVEDILOL 3.125 MG TABLET PO SCH (08:09)
[2020-10-23] MEDS: VITAMIN D3 1,000 UNIT TABLET PO SCH (08:09)
[2020-10-23] MEDS: FUROSEMIDE 40 MG TABLET PO SCH ×2 (08:09→21:27)
[2020-10-23] MEDS: 0.9 % SODIUM CHLORIDE 10 ML SYRINGE IV SCH ×3 (08:12→21:30)
[2020-10-23] MEDS: INSULIN LISPRO 1 UNIT/0.01 ML UNIT SQ SCH ×4 (08:12→21:21)
[2020-10-23] MEDS: cefTRIAXone 2 GM in DEXTROSE 5% IN WATER 50 ML IV SCH (08:13)
[2020-10-23] MEDS: MOMETASONE INH SCH ×2 (08:13→21:30)
[2020-10-23] MEDS: AZITHROMYCIN 500 MG in DEXTROSE 5% IN WATER 250 ML IV SCH (08:49)
[2020-10-23 09:45] LABS: ALT/SGPT 9 U/L (<40); AST/SGOT 17 U/L (<40); Albumin 2.7 gm/dL (3.2-5.2); Albumin/Globulin Ratio 0.8 (1.0-2.3); Alkaline Phosphatase 72 U/L (39-117); Bilirubin,Direct < 0.2 mg/dL (0-0.3); Bilirubin,Total 0.2 mg/dL (0.1-1.0); Blood Urea Nitrogen 43 mg/dL (8-23); Calcium 8.9 mg/dL (8.6-10.4); Carbon Dioxide 24 mmol/L (22-30); Chloride 100 mmol/L (96-108); Globulin 3.4 gm/dL (2.2-3.7); Glomerular Filtration Rate 55; Glucose 138 mg/dL (70-105); Lactate Dehydrogenase 194 U/L (135-225); Phosphorous 3.5 mg/dL (2.5-4.5); Triglycerides 56 mg/dL (<150); Uric Acid 8.8 mg/dL (2.5-8.0)
[2020-10-23] MEDS: ALBUTEROL SULFATE 2.5 MG/3 ML NEBULIZER NEB PRN (10:02)
--- NOTE | 2020-10-23 10:05 | XRay Report ---
CLINICAL INFORMATION: COVID PNA COMPARISON: 10/21/2020 FINDINGS: Heart size and mediastinum are normal. The pulmonary vessels are returned to normal caliber and interstitial edema has cleared. Small bibasilar infiltrates improved IMPRESSION: Interval resolution of CHF. Small bibasilar infiltrates have improved considerably Interpreted and Authenticated by: Singh Byrne 10/23/20
[2020-10-23] MEDS ORDERED: HYDROcodone/APAP 5/325MG TABLET PO ONE (21:20)
[2020-10-23] MEDS: ATORVASTATIN 40 MG TABLET PO SCH (21:25)
[2020-10-23] MEDS: MELATONIN 3 MG TABLET PO SCH (21:27)
[2020-10-23] MEDS: SENNOSIDES/DOCUSATE SODIUM 1 TAB TABLET PO SCH (21:29)
[2020-10-24] MEDS: 0.9 % SODIUM CHLORIDE 10 ML SYRINGE IV SCH ×3 (04:45→21:02)
[2020-10-24 06:49] LABS: Basophils # (Auto) 0.01 K/mcL (0.00-0.20); Basophils % (Auto) 0.1 % (0.0-2.0); Eosinophils # (Auto) 0.05 K/mcL (0.00-0.70); Eosinophils % (Auto) 0.7 % (0.0-7.0); Hematocrit 32.5 % (41.0-55.0); Hemoglobin 10.3 g/dL (13.5-16.5); Lymphocytes # (Auto) 2.13 K/mcL (1.50-4.80); Lymphocytes % (Auto) 31.8 % (15.0-49.0); Mean Corpuscular HGB Conc 31.7 g/dL (31.0-36.0); Mean Platelet Volume 10.9 fL (7.4-10.4); Monocytes # (Auto) 0.55 K/mcL (0.10-0.90); Monocytes % (Auto) 8.2 % (1.0-12.0); Neutrophils % (Auto) 59.2 % (38.0-78.0); Platelet Count 150 K/mcL (140-440); RBC 3.57 M/mcL (4.50-5.90); Red Cell Distribution Width 15.4 % (11.5-14.5); WBC 6.7 K/mcL (4.5-11.0)
[2020-10-24 07:13] LABS: ALT/SGPT 17 U/L (<40); AST/SGOT 26 U/L (<40); Albumin 2.8 gm/dL (3.2-5.2); Albumin/Globulin Ratio 0.8 (1.0-2.3); Alkaline Phosphatase 71 U/L (39-117); Bilirubin,Direct < 0.2 mg/dL (0-0.3); Bilirubin,Total 0.2 mg/dL (0.1-1.0); Blood Urea Nitrogen 45 mg/dL (8-23); Calcium 8.7 mg/dL (8.6-10.4); Carbon Dioxide 27 mmol/L (22-30); Chloride 99 mmol/L (96-108); Globulin 3.5 gm/dL (2.2-3.7); Glomerular Filtration Rate 55; Glucose 114 mg/dL (70-105); Lactate Dehydrogenase 156 U/L (135-225); Phosphorous 3.8 mg/dL (2.5-4.5); Triglycerides 72 mg/dL (<150)
[2020-10-24] MEDS: CARVEDILOL 3.125 MG TABLET PO SCH (07:49)
[2020-10-24] MEDS: BACLOFEN 10 MG TABLET PO SCH (07:49)
[2020-10-24] MEDS: TAMSULOSIN 0.4 MG CAPSULE PO SCH (07:50)
[2020-10-24] MEDS: MULTIVIT,THER IRON,CA,FA & MIN 1 TABLET PO SCH (07:50)
[2020-10-24] MEDS: DOCUSATE SODIUM 100 MG CAPSULE PO SCH ×2 (07:50→21:01)
[2020-10-24] MEDS: FUROSEMIDE 40 MG TABLET PO SCH ×2 (07:50→21:01)
[2020-10-24] MEDS: LISINOPRIL 2.5 MG TABLET PO SCH (07:51)
[2020-10-24] MEDS: APIXABAN 5 MG TABLET PO SCH ×2 (07:51→21:00)
[2020-10-24] MEDS: sitaGLIPtin 100 MG TABLET PO SCH (07:51)
[2020-10-24] MEDS: VITAMIN D3 1,000 UNIT TABLET PO SCH (07:51)
[2020-10-24] MEDS: ZINC SULFATE 50 MG CAPSULE PO SCH (07:51)
[2020-10-24] MEDS: cefTRIAXone 2 GM in DEXTROSE 5% IN WATER 50 ML IV SCH (07:53)
[2020-10-24] MEDS: INSULIN LISPRO 1 UNIT/0.01 ML UNIT SQ SCH ×4 (07:54→21:01)
--- NOTE | 2020-10-24 11:16 | Internal Med Progress Note ---
SUBJECTIVE Subjective Patient information: Note initiated : 10/23/20 at 11:13 am Service Date, if different from initiated Date: [] Patient: Chente Whitfield 70 y/o M admitted on 10/21/20 for Fever. Chief Complaint: [] Interval history: Mr. Whitfield is a 70 year old M resident of [facility] who presents to the ER with increasing weakness confusion, failure to thrive and high-grade fever. Initial work-up was consistent with Covid pneumonia, patient was started on steroids/bronchodilators/crystalloids and subsequently hospitalist service consulted. Patient is currently on 2 L oxygen maintaining sats 95. T-max 105.4. Troponin I 06, BNP 2323, initial GCS 7 At the time of my evaluation patient remains groggy and drowsy. Unable to provide history. Most of the history was obtained from review of medical records and ER physician. From review of medical records patient carries a history of chronic lymphedema/CKD stage III/DJD/HTN/DM type II/anxiety disorder/BPH 10/22-patient doing better. No overnight events. Currently on 1-1/2 L oxygen. Remdesivir discontinued. Continues steroids/diuretics/antibiotic coverage in setting of pneumonia. Echocardiogram 09/30- 55% EF. Mycoplasma and strep pneumo negative. Clinically improving. Continue gentle diuresis/COVID-19 treatment. Wean oxygen as tolerated 10/23-patient doing a lot better. DC dexamethasone. Interval chest imaging to CHF/infiltrate. Continue antibiotic coverage. No overnight events. Labs and hemodynamics stable. Contact precaution discontinued. Tolerating diet and physical therapies. No overnight fever chills, particular diarrhea Constitutional Vitals: Vital Signs Temp Pulse Resp BP Pulse Ox 97.9 F 74 20 100/65 93 10/24/20 08:01 10/24/20 08:01 10/24/20 00:01 10/24/20 08:01 10/24/20 08:01 Period Temp Pulse Resp BP Sys/Hill Pulse Ox Last 24 Hr 97.5 F-98.7 F 62-77 20-20 93-115/53-76 91-95 Intake and Output 10/23/20 10/24/20 10/24/20 21:59 05:59 13:59 Intake Total 240 50 Output Total 254 2 1 Balance -254 238 49 Weight 90.991 kg alert oriented Nonlabored breathing No anxiety Intake & Output: Intake & Output 10/23/20 10/24/20 10/24/20 21:59 05:59 13:59 Intake Total 240 50 Output Total 254 2 1 Balance -254 238 49 Weight 90.991 kg Intake: IV 50 Rocephin 2 gm In Dextrose 5% in 50 Water 50 ml @ 100 mls/hr IV Q24H [facility] Rx#:[id number] Oral 240 Output: Void Amount 250 # of times incontinent of urine 4 2 1 Other: Urine Appearance Clear Urine Color Pale Stool Size Large Stool Color Brown Stool Consistency Soft Formed # Voids 1 # Bowel Movements 1 OBJ DATA Labs CBC & Chem 7: 10/24/20 05:28 10/24/20 05:28 Labs: Abnormal Lab Results 10/24/20 10/24/20 10/23/20 05:28 05:28 05:05 RBC 3.57 L Hgb 10.3 L Hct 32.5 L RDW 15.4 H Plt Count MPV 10.9 H Neut % (Auto) Lymph % (Auto) Lymph # (Auto) BUN 45 H 43 H Creatinine 1.3 H 1.3 H Glucose 114 H 138 H Uric Acid 9.0 H 8.8 H Lactate Dehydrogenase Troponin T C-Reactive Protein Albumin 2.8 L 2.7 L Albumin/Globulin Ratio 0.8 L 0.8 L 10/23/20 10/22/20 10/22/20 05:05 04:55 04:55 RBC 3.37 L 3.41 L Hgb 9.6 L 9.8 L Hct 30.9 L 30.8 L RDW 15.1 H 14.9 H Plt Count 127 L MPV 11.2 H 10.7 H Neut % (Auto) 85.1 H Lymph % (Auto) 9.4 L Lymph # (Auto) 1.39 L 0.74 L BUN 35 H Creatinine 1.3 H Glucose 162 H Uric Acid 8.7 H Lactate Dehydrogenase 129 L Troponin T C-Reactive Protein 12.20 H Albumin 2.8 L Albumin/Globulin Ratio 0.8 L 10/21/20 10/21/20 09:51 09:51 RBC Hgb Hct RDW Plt Count MPV Neut % (Auto) Lymph % (Auto) Lymph # (Auto) BUN Creatinine Glucose Uric Acid Lactate Dehydrogenase Troponin T 0.06 H* C-Reactive Protein 9.60 H Albumin Albumin/Globulin Ratio Meds: Medications Acetaminophen (Acetaminophen 325 Mg Tablet) 650 mg PO Q4-6HP PRN; Protocol PRN Reason: Per Pain Protocol/Fever > 101 Hydrocodone Bitart/Acetaminophen (Hydrocodone/Apap 5/325mg Tablet) 1 - 2 tab PO Q4-6HP PRN; Protocol PRN Reason: Pain Albuterol Sulfate (Albuterol Sulfate 2.5 Mg/3 Ml Nebulizer) 2.5 mg NEB Q4HP PRN PRN Reason: Shortness Of Breath Last Admin: 10/23/20 10:02 Dose: 2.5 mg Documented by: Albuterol/Ipratropium (Ipratropium/Albuterol Sulfate 1 Puff Inhaler) 1 puff INH Q4-6HP PRN PRN Reason: Wheezing Apixaban (Apixaban 5 Mg Tablet) 2.5 mg PO BID [facility] Last Admin: 10/24/20 07:51 Dose: 2.5 mg Documented by: Atorvastatin Calcium (Atorvastatin 40 Mg Tablet) 40 mg PO [facility] Last Admin: 10/23/20 21:25 Dose: 40 mg Documented by: Baclofen (Baclofen 10 Mg Tablet) 5 mg PO QDAY [facility] Last Admin: 10/24/20 07:49 Dose: 5 mg Documented by: Bisacodyl (Bisacodyl 10 Mg Supp.Rect) 10 mg WA Q2-3DAYS PRN PRN Reason: Constipation Carvedilol (Carvedilol 3.125 Mg Tablet) 3.125 mg PO [facility] Last Admin: 10/24/20 07:49 Dose: 3.125 mg Documented by: Dextrose (Dextrose 50% 50 Ml Vial) 0 ml IV UD PRN PRN Reason: Hypoglycemia Diagnostic Test (Pha) (Accu-Chek 1 Each Strip) 1 each FS ACHS [facility] Last Admin: 10/24/20 07:54 Dose: 1 each Documented by: Docusate Sodium (Docusate Sodium 100 Mg Capsule) 100 mg PO BID [facility] Last Admin: 10/24/20 07:50 Dose: 100 mg Documented by: Furosemide (Furosemide 40 Mg Tablet) 40 mg PO BID [facility] Last Admin: 10/24/20 07:50 Dose: 40 mg Documented by: Glucose (Dextrose 31 Gm Oral.Susp) 15 gm PO PRN PRN PRN Reason: Hypoglycemia Guaifenesin/Codeine Phosphate (Guaifenesin/Codeine 10 Ml Udc) 10 ml PO Q4HP PRN PRN Reason: Cough Potassium Chloride 40 meq/ (Dextrose) 520 mls @ 130 mls/hr IV UD PRN PRN Reason: K+ = or < 3.5 Magnesium Sulfate (Magnesium Sulfate) 2 gm in 50 mls @ 50 mls/hr IV UD PRN PRN Reason: MG = or < 1.7 Ceftriaxone Sodium 2 gm/ (Dextrose) 50 mls @ 100 mls/hr IV Q24H [facility]; Protocol Last Infusion: 10/24/20 08:23 Dose: Infused Documented by: Acetaminophen (Ofirmev) 650 mg in 65 mls @ 130 mls/hr IV Q6HP PRN; Protocol PRN Reason: Per Pain Protocol/Fever > 101 Insulin Human Lispro (Insulin Lispro 1 Unit/0.01 Ml Unit) 0 unit SQ ACHS [facility]; Protocol Last Admin: 10/24/20 07:54 Dose: Not Given Documented by: Iron Carb/Multivit/Bear Keeper/Folic Acid (Multivit,Ther Iron,Ca,Fa & Min 1 Tablet) 1 tab PO DAILY [facility] Last Admin: 10/24/20 07:50 Dose: 1 tab Documented by: Lisinopril (Lisinopril 2.5 Mg Tablet) 2.5 mg PO DAILY [facility] Last Admin: 10/24/20 07:51 Dose: 2.5 mg Documented by: Magnesium Hydroxide (Magnesium Hydroxide 30 Ml Oral.Susp) 30 ml PO DAILYP PRN PRN Reason: Constipation Melatonin (Melatonin 3 Mg Tablet) 6 mg PO HS [facility] Last Admin: 10/23/20 21:27 Dose: 6 mg Documented by: Metoprolol Tartrate (Metoprolol Tartrate 5 Mg/5 Ml Vial) 5 mg IV Q5M PRN PRN Reason: Heart Rate > 140 bpm Ondansetron HCl (Ondansetron 4 Mg Odt Tablet) 4 mg SL Q4-6HP PRN; Protocol PRN Reason: Nausea And Vomiting Ondansetron HCl (Ondansetron 4 Mg/2 Ml Vial) 4 mg IV Q4-6HP PRN; Protocol PRN Reason: Nausea And Vomiting Mometasone [Asmanex Hfa] 200 Mcg/Actuation Hfa 2 dose INH BID [facility] Last Admin: 10/23/20 21:30 Dose: Not Given Documented by: Polyethylene Glycol (Polyethylene Glycol 3350 17 Gm Packet) 17 gm PO DAILYP PRN PRN Reason: Constipation Potassium Chloride (Potassium Chloride 20 Meq Packet) 40 meq PO DAILYP PRN PRN Reason: K+ < 3.5 Potassium/Phosphorus/Sodium (Neutra Phos 1 Packet) 2 packet PO DAILY PRN PRN Reason: PHOS <2.5 Ropinirole HCl (Ropinirole 1 Mg Tablet) 4 mg PO TID [facility] Last Admin: 10/23/20 21:22 Dose: 4 mg Documented by: Senna/Docusate Sodium (Sennosides/Docusate Sodium 1 Tab Tablet) 1 tab PO HS [facility] Last Admin: 10/23/20 21:29 Dose: 1 tab Documented by: Sitagliptin Phosphate (Sitagliptin 100 Mg Tablet) 100 mg PO DAILY [facility] Last Admin: 10/24/20 07:51 Dose: 100 mg Documented by: Sodium Chloride (0.9 % Sodium Chloride 10 Ml Syringe) 10 ml IV Q8 [facility] Last Admin: 10/24/20 04:45 Dose: 10 ml Documented by: Tamsulosin HCl (Tamsulosin 0.4 Mg Capsule) 0.4 mg PO QDAY [facility] Last Admin: 10/24/20 07:50 Dose: 0.4 mg Documented by: Vitamin D (Vitamin D3 1,000 Unit Tablet) 1,000 unit PO QDAY [facility] Last Admin: 10/24/20 07:51 Dose: 1,000 unit Documented by: Zinc Sulfate (Zinc Sulfate 50 Mg Capsule) 50 mg PO DAILY [facility] Last Admin: 10/24/20 07:51 Dose: 50 mg Documented by: A/P Narrative A/P Narrative: * Acute decompensated heart failure clinically improving with diuresis. Diastolic dysfunction with EF 55% on previous echo * Committee acquired pneumonia -continue antibiotic coverage * Acute hypoxic respiratory failure - Clinical radiological improvement noted. On 3 L oxygen. * Poorly controlled diabetes type 2 continue basal prandial insulin/CC diet * Anticoagulation continue apixaban * Hypertension/nursing lymphedema -stable on home dose Coreg/DINESH i nhibitor/diuretics * History of COPD continue bronchodilators * Anxiety disorder-hold paroxetine due to QT prolongation until patient off azithromycin * Full code Plan * DC steroids * Wean oxygen as tolerated * Continue antibiotics for community-acquired pathogens * Pre-existing medical condition management on home meds * Directed therapies/nutrition support/early mobilization * Discharge planning pending clinical improvement Time Spent With Patient Time: Total time spent is greater than 50% in coordination of care (as documented) at patient's floor/unit and/or counseling patient: QUALITY Stroke Symptom Onset Unknown: No VTE Deep Vein Thrombosis/Pulmonary Embolism Present on Admission: No
--- NOTE | 2020-10-24 11:19 | Internal Med Progress Note ---
SUBJECTIVE Subjective Patient information: Note initiated : 10/24/20 at 11:16 am Service Date, if different from initiated Date: [] Patient: Chente Whitfield 70 y/o M admitted on 10/21/20 for Fever. Chief Complaint: [] Interval history: Mr. Whitfield is a 70 year old M resident of [facility] who presents to the ER with increasing weakness confusion, failure to thrive and high-grade fever. Initial work-up was consistent with Covid pneumonia, patient was started on steroids/bronchodilators/crystalloids and subsequently hospitalist service consulted. Patient is currently on 2 L oxygen maintaining sats 95. T-max 105.4. Troponin I 06, BNP 2323, initial GCS 7 At the time of my evaluation patient remains groggy and drowsy. Unable to provide history. Most of the history was obtained from review of medical records and ER physician. From review of medical records patient carries a history of chronic lymphedema/CKD stage III/DJD/HTN/DM type II/anxiety disorder/BPH 10/22-patient doing better. No overnight events. Currently on 1-1/2 L oxygen. Remdesivir discontinued. Continues steroids/diuretics/antibiotic coverage in setting of pneumonia. Echocardiogram 09/30- 55% EF. Mycoplasma and strep pneumo negative. Clinically improving. Continue gentle diuresis/COVID-19 treatment. Wean oxygen as tolerated 10/23-patient doing a lot better. DC dexamethasone. Interval chest imaging to CHF/infiltrate. Continue antibiotic coverage. No overnight events. Labs and hemodynamics stable. Contact precaution discontinued. Tolerating diet and physical therapies. No overnight fever chills, particular diarrhea 10/24-patient remarkably better. Now on 3 L oxygen. Ambulating tolerating diet and feels a lot better. Case management coordinating SNF transfer likely Monday. No overnight events or concerns per staff. Continue antibiotic cove rage. Stable labs and hemodynamics. Creatinine 1.3, hemoglobin 10.3, cultures negative so far. Covid PCR negative. COVID-19 treatment discontinued Constitutional Vitals: Vital Signs Temp Pulse Resp BP Pulse Ox 97.9 F 74 20 100/65 93 10/24/20 08:01 10/24/20 08:01 10/24/20 00:01 10/24/20 08:01 10/24/20 08:01 Period Temp Pulse Resp BP Sys/Hill Pulse Ox Last 24 Hr 97.5 F-98.7 F 62-77 20-20 93-115/53-76 91-95 Intake and Output 10/23/20 10/24/20 10/24/20 21:59 05:59 13:59 Intake Total 240 50 Output Total 254 2 1 Balance -254 238 49 Weight 90.991 kg Alert oriented Nonlabored breathing on continuous oxygen No anxiety No lymphedema Intake & Output: Intake & Output 10/23/20 10/24/20 10/24/20 21:59 05:59 13:59 Intake Total 240 50 Output Total 254 2 1 Balance -254 238 49 Weight 90.991 kg Intake: IV 50 Rocephin 2 gm In Dextrose 5% in 50 Water 50 ml @ 100 mls/hr IV Q24H [facility] Rx#:[id number] Oral 240 Output: Void Amount 250 # of times incontinent of urine 4 2 1 Other: Urine Appearance Clear Urine Color Pale Stool Size Large Stool Color Brown Stool Consistency Soft Formed # Voids 1 # Bowel Movements 1 OBJ DATA Labs CBC & Chem 7: 10/24/20 05:28 10/24/20 05:28 Labs: Abnormal Lab Results 10/24/20 10/24/20 10/23/20 05:28 05:28 05:05 RBC 3.57 L Hgb 10.3 L Hct 32.5 L RDW 15.4 H Plt Count MPV 10.9 H Neut % (Auto) Lymph % (Auto) Lymph # (Auto) BUN 45 H 43 H Creatinine 1.3 H 1.3 H Glucose 114 H 138 H Uric Acid 9.0 H 8.8 H Lactate Dehydrogenase Troponin T C-Reactive Protein Albumin 2.8 L 2.7 L Albumin/Globulin Ratio 0.8 L 0.8 L 10/23/20 10/22/20 10/22/20 05:05 04:55 04:55 RBC 3.37 L 3.41 L Hgb 9.6 L 9.8 L Hct 30.9 L 30.8 L RDW 15.1 H 14.9 H Plt Count 127 L MPV 11.2 H 10.7 H Neut % (Auto) 85.1 H Lymph % (Auto) 9.4 L Lymph # (Auto) 1.39 L 0.74 L BUN 35 H Creatinine 1.3 H Glucose 162 H Uric Acid 8.7 H Lactate Dehydrogenase 129 L Troponin T C-Reactive Protein 12.20 H Albumin 2.8 L Albumin/Globulin Ratio 0.8 L 10/21/20 10/21/20 09:51 09:51 RBC Hgb Hct RDW Plt Count MPV Neut % (Auto) Lymph % (Auto) Lymph # (Auto) BUN Creatinine Glucose Uric Acid Lactate Dehydrogenase Troponin T 0.06 H* C-Reactive Protein 9.60 H Albumin Albumin/Globulin Ratio Meds: Medications Acetaminophen (Acetaminophen 325 Mg Tablet) 650 mg PO Q4-6HP PRN; Protocol PRN Reason: Per Pain Protocol/Fever > 101 Hydrocodone Bitart/Acetaminophen (Hydrocodone/Apap 5/325mg Tablet) 1 - 2 tab PO Q4-6HP PRN; Protocol PRN Reason: Pain Albuterol Sulfate (Albuterol Sulfate 2.5 Mg/3 Ml Nebulizer) 2.5 mg NEB Q4HP PRN PRN Reason: Shortness Of Breath Last Admin: 10/23/20 10:02 Dose: 2.5 mg Documented by: Albuterol/Ipratropium (Ipratropium/Albuterol Sulfate 1 Puff Inhaler) 1 puff INH Q4-6HP PRN PRN Reason: Wheezing Apixaban (Apixaban 5 Mg Tablet) 2.5 mg PO BID [facility] Last Admin: 10/24/20 07:51 Dose: 2.5 mg Documented by: Atorvastatin Calcium (Atorvastatin 40 Mg Tablet) 40 mg PO [facility] Last Admin: 10/23/20 21:25 Dose: 40 mg Documented by: Baclofen (Baclofen 10 Mg Tablet) 5 mg PO QDAY [facility] Last Admin: 10/24/20 07:49 Dose: 5 mg Documented by: Bisacodyl (Bisacodyl 10 Mg Supp.Rect) 10 mg [place] Q2-3DAYS PRN PRN Reason: Constipation Carvedilol (Carvedilol 3.125 Mg Tablet) 3.125 mg PO [facility] Last Admin: 10/24/20 07:49 Dose: 3.125 mg Documented by: Dextrose (Dextrose 50% 50 Ml Vial) 0 ml IV UD PRN PRN Reason: Hypoglycemia Diagnostic Test (Pha) (Accu-Chek 1 Each Strip) 1 each FS ACHS [facility] Last Admin: 10/24/20 07:54 Dose: 1 each Documented by: Docusate Sodium (Docusate Sodium 100 Mg Capsule) 100 mg PO BID [facility] Last Admin: 10/24/20 07:50 Dose: 100 mg Documented by: Furosemide (Furosemide 40 Mg Tablet) 40 mg PO BID [facility] Last Admin: 10/24/20 07:50 Dose: 40 mg Documented by: Glucose (Dextrose 31 Gm Oral.Susp) 15 gm PO PRN PRN PRN Reason: Hypoglycemia Guaifenesin/Codeine Phosphate (Guaifenesin/Codeine 10 Ml Udc) 10 ml PO Q4HP PRN PRN Reason: Cough Potassium Chloride 40 meq/ (Dextrose) 520 mls @ 130 mls/hr IV UD PRN PRN Reason: K+ = or < 3.5 Magnesium Sulfate (Magnesium Sulfate) 2 gm in 50 mls @ 50 mls/hr IV UD PRN PRN Reason: MG = or < 1.7 Ceftriaxone Sodium 2 gm/ (Dextrose) 50 mls @ 100 mls/hr IV Q24H [facility]; Protocol Last Infusion: 10/24/20 08:23 Dose: Infused Documented by: Acetaminophen (irmev) 650 mg in 65 mls @ 130 mls/hr IV Q6HP PRN; Protocol PRN Reason: Per Pain Protocol/Fever > 101 Insulin Human Lispro (Insulin Lispro 1 Unit/0.01 Ml Unit) 0 unit SQ ACHS [facility]; Protocol Last Admin: 10/24/20 07:54 Dose: Not Given Documented by: Iron Carb/Multivit/[place]/Folic Acid (Multivit,Ther Iron,Ca,Fa & Min 1 Tablet) 1 tab PO DAILY [facility] Last Admin: 10/24/20 07:50 Dose: 1 tab Documented by: Lisinopril (Lisinopril 2.5 Mg Tablet) 2.5 mg PO DAILY [facility] Last Admin: 10/24/20 07:51 Dose: 2.5 mg Documented by: Magnesium Hydroxide (Magnesium Hydroxide 30 Ml Oral.Susp) 30 ml PO DAILYP PRN PRN Reason: Constipation Melatonin (Melatonin 3 Mg Tablet) 6 mg PO HS [facility] Last Admin: 10/23/20 21:27 Dose: 6 mg Documented by: Metoprolol Tartrate (Metoprolol Tartrate 5 Mg/5 Ml Vial) 5 mg IV Q5M PRN PRN Reason: Heart Rate > 140 bpm Ondansetron HCl (Ondansetron 4 Mg Odt Tablet) 4 mg SL Q4-6HP PRN; Protocol PRN Reason: Nausea And Vomiting Ondansetron HCl (Ondansetron 4 Mg/2 Ml Vial) 4 mg IV Q4-6HP PRN; Protocol PRN Reason: Nausea And Vomiting Mometasone [Asmanex Hfa] 200 Mcg/Actuation Hfa 2 dose INH BID [facility] Last Admin: 10/23/20 21:30 Dose: Not Given Documented by: Polyethylene Glycol (Polyethylene Glycol 3350 17 Gm Packet) 17 gm PO DAILYP PRN PRN Reason: Constipation Potassium Chloride (Potassium Chloride 20 Meq Packet) 40 meq PO DAILYP PRN PRN Reason: K+ < 3.5 Potassium/Phosphorus/Sodium (Neutra Phos 1 Packet) 2 packet PO DAILY PRN PRN Reason: PHOS <2.5 Ropinirole HCl (Ropinirole 1 Mg Tablet) 4 mg PO TID [facility] Last Admin: 10/23/20 21:22 Dose: 4 mg Documented by: Senna/Docusate Sodium (Sennosides/Docusate Sodium 1 Tab Tablet) 1 tab PO HS [facility] Last Admin: 10/23/20 21:29 Dose: 1 tab Documented by: Sitagliptin Phosphate (Sitagliptin 100 Mg Tablet) 100 mg PO DAILY [facility] Last Admin: 10/24/20 07:51 Dose: 100 mg Documented by: Sodium Chloride (0.9 % Sodium Chloride 10 Ml Syringe) 10 ml IV Q8 [facility] Last Admin: 10/24/20 04:45 Dose: 10 ml Documented by: Tamsulosin HCl (Tamsulosin 0.4 Mg Capsule) 0.4 mg PO QDAY [facility] Last Admin: 10/24/20 07:50 Dose: 0.4 mg Documented by: Vitamin D (Vitamin D3 1,000 Unit Tablet) 1,000 unit PO QDAY [facility] Last Admin: 10/24/20 07:51 Dose: 1,000 unit Documented by: Zinc Sulfate (Zinc Sulfate 50 Mg Capsule) 50 mg PO DAILY [facility] Last Admin: 10/24/20 07:51 Dose: 50 mg Documented by: A/P Narrative A/P Narrative: * Acute decompensated heart failure clinically improving with diuresis. Diastolic dysfunction with EF 55% on previous echo. Continue Core g/diuretics/DINESH inhibitor * Community acquired pneumonia -clinical improvement noted on antibiotic co verage * Acute hypoxic respiratory failure - Clinical and radiological improvement noted. Wean as tolerated. Currently on 3 L oxygen. * DM type II- continue basal prandial insulin/CC diet * Anticoagulation continue apixaban * Hypertension/nursing lymphedema -stable on home dose Coreg/DINESH inhibitor/d iuretics * History of COPD continue bronchodilators * Anxiety disorder-hold paroxetine due to QT prolongation until patient off azithromycin * Full code Plan * Continue antibiotic coverage * Wean oxygen as tolerated * Pre-existing medical condition management on home meds * Directed therapies/nutrition support/early mobilization * Discharge planning per case management likely SNF Time Spent With Patient Time: Total time spent is greater than 50% in coordination of care (as documented) at patient's floor/unit and/or counseling patient: QUALITY Stroke Symptom Onset Unknown: No VTE Deep Vein Thrombosis/Pulmonary Embolism Present on Admission: No
[2020-10-24] MEDS: rOPINIRole 1 MG TABLET PO SCH ×3 (11:20→21:00)
[2020-10-24] MEDS: MOMETASONE INH SCH ×2 (11:20→21:02)
[2020-10-24] MEDS: HYDROcodone/APAP 5/325MG TABLET PO PRN ×2 (15:21→21:07)
[2020-10-24] MEDS: MELATONIN 3 MG TABLET PO SCH (21:01)
[2020-10-24] MEDS: ATORVASTATIN 40 MG TABLET PO SCH (21:01)
[2020-10-24] MEDS: SENNOSIDES/DOCUSATE SODIUM 1 TAB TABLET PO SCH (21:07)
[2020-10-25] MEDS: HYDROcodone/APAP 5/325MG TABLET PO PRN ×2 (02:07→22:17)
[2020-10-25] MEDS: 0.9 % SODIUM CHLORIDE 10 ML SYRINGE IV SCH ×3 (04:31→22:18)
[2020-10-25 06:09] LABS: Basophils # (Auto) 0.01 K/mcL (0.00-0.20); Basophils % (Auto) 0.2 % (0.0-2.0); Eosinophils # (Auto) 0.12 K/mcL (0.00-0.70); Eosinophils % (Auto) 1.9 % (0.0-7.0); Hematocrit 32.3 % (41.0-55.0); Hemoglobin 10.1 g/dL (13.5-16.5); Lymphocytes # (Auto) 2.21 K/mcL (1.50-4.80); Lymphocytes % (Auto) 35.2 % (15.0-49.0); Mean Cell Volume 92.3 fL (80.0-100.0); Mean Corpuscular HGB Conc 31.3 g/dL (31.0-36.0); Mean Platelet Volume 10.5 fL (7.4-10.4); Monocytes # (Auto) 0.52 K/mcL (0.10-0.90); Monocytes % (Auto) 8.3 % (1.0-12.0); Neutrophils % (Auto) 54.4 % (38.0-78.0); Platelet Count 144 K/mcL (140-440); Red Cell Distribution Width 15.6 % (11.5-14.5); WBC 6.3 K/mcL (4.5-11.0)
[2020-10-25 06:41] LABS: ALT/SGPT 15 U/L (<40); AST/SGOT 19 U/L (<40); Albumin 2.7 gm/dL (3.2-5.2); Albumin/Globulin Ratio 0.8 (1.0-2.3); Alkaline Phosphatase 68 U/L (39-117); Bilirubin,Direct < 0.2 mg/dL (0-0.3); Bilirubin,Total 0.2 mg/dL (0.1-1.0); Blood Urea Nitrogen 48 mg/dL (8-23); Calcium 8.5 mg/dL (8.6-10.4); Carbon Dioxide 29 mmol/L (22-30); Chloride 99 mmol/L (96-108); Globulin 3.6 gm/dL (2.2-3.7); Glomerular Filtration Rate 51; Glucose 123 mg/dL (70-105); Lactate Dehydrogenase 168 U/L (135-225); Phosphorous 4.6 mg/dL (2.5-4.5); Triglycerides 64 mg/dL (<150); Uric Acid 8.7 mg/dL (2.5-8.0)
[2020-10-25] MEDS: CARVEDILOL 3.125 MG TABLET PO SCH (08:35)
[2020-10-25] MEDS: LISINOPRIL 2.5 MG TABLET PO SCH (08:36)
[2020-10-25] MEDS: FUROSEMIDE 40 MG TABLET PO SCH ×2 (08:36→16:44)
[2020-10-25] MEDS: MOMETASONE INH SCH ×2 (08:36→22:18)
[2020-10-25] MEDS: MULTIVIT,THER IRON,CA,FA & MIN 1 TABLET PO SCH (08:37)
[2020-10-25] MEDS: VITAMIN D3 1,000 UNIT TABLET PO SCH (08:37)
[2020-10-25] MEDS: DOCUSATE SODIUM 100 MG CAPSULE PO SCH ×2 (08:37→22:17)
[2020-10-25] MEDS: sitaGLIPtin 100 MG TABLET PO SCH (08:37)
[2020-10-25] MEDS: APIXABAN 5 MG TABLET PO SCH ×2 (08:37→22:16)
[2020-10-25] MEDS: ZINC SULFATE 50 MG CAPSULE PO SCH (08:37)
[2020-10-25] MEDS: rOPINIRole 1 MG TABLET PO SCH ×3 (08:37→22:17)
[2020-10-25] MEDS: BACLOFEN 10 MG TABLET PO SCH (08:37)
[2020-10-25] MEDS: TAMSULOSIN 0.4 MG CAPSULE PO SCH (08:37)
[2020-10-25] MEDS: cefTRIAXone 2 GM in DEXTROSE 5% IN WATER 50 ML IV SCH (08:38)
[2020-10-25] MEDS: INSULIN LISPRO 1 UNIT/0.01 ML UNIT SQ SCH ×4 (08:48→22:18)
--- NOTE | 2020-10-25 11:21 | Internal Med Progress Note ---
SUBJECTIVE Subjective Patient information: Note initiated : 10/25/20 at 11:19 am Service Date, if different from initiated Date: [] Patient: Chente Whitfield 70 y/o M admitted on 10/21/20 for Fever. Chief Complaint: [] Interval history: Mr. Whitfield is a 70 year old M resident of [facility] who presents to the ER with increasing weakness confusion, failure to thrive and high-grade fever. Initial work-up was consistent with Covid pneumonia, patient was started on steroids/bronchodilators/crystalloids and subsequently hospitalist service consulted. Patient is currently on 2 L oxygen maintaining sats 95. T-max 105.4. Troponin I 06, BNP 2323, initial GCS 7 At the time of my evaluation patient remains groggy and drowsy. Unable to provide history. Most of the history was obtained from review of medical records and ER physician. From review of medical records patient carries a history of chronic lymphedema/CKD stage III/DJD/HTN/DM type II/anxiety disorder/BPH 10/22-patient doing better. No overnight events. Currently on 1-1/2 L oxygen. Remdesivir discontinued. Continues steroids/diuretics/antibiotic coverage in setting of pneumonia. Echocardiogram 09/30- 55% EF. Mycoplasma and strep pneumo negative. Clinically improving. Continue gentle diuresis/COVID-19 treatment. Wean oxygen as tolerated 10/23-patient doing a lot better. DC dexamethasone. Interval chest imaging to CHF/infiltrate. Continue antibiotic coverage. No overnight events. Labs and hemodynamics stable. Contact precaution discontinued. Tolerating diet and physical therapies. No overnight fever chills, particular diarrhea 10/24-patient remarkably better. Now on 3 L oxygen. Ambulating tolerating diet and feels a lot better. Case management coordinating SNF transfer likely Monday. No overnight events or concerns per staff. Continue antibiotic cove rage. Stable labs and hemodynamics. Creatinine 1.3, hemoglobin 10.3, cultures negative so far. Covid PCR negative. COVID-19 treatment discontinued 10/25-patient doing better. Awaiting SNF transfer. Stable hemodynamics. On antibiotic coverage. Tolerating diet and physical therapies. No overnight fever including fever chills nausea vomiting or shortness of breath. No concerns per staff. Constitutional Vitals: Vital Signs Temp Pulse Resp BP Pulse Ox 97.1 F 53 L 20 100/51 93 10/25/20 08:01 10/25/20 08:01 10/25/20 08:01 10/25/20 08:01 10/25/20 08:34 Period Temp Pulse Resp BP Sys/Hill Pulse Ox Last 24 Hr 97.1 F-99.6 F 53-79 16-20 95-107/49-61 93-100 Intake and Output 10/24/20 10/25/20 10/25/20 21:59 05:59 13:59 Intake Total 240 300 350 Output Total 126 476 800 Balance 114 -176 -450 Weight 89.443 kg 87.6 kg Alert oriented Nonlabored breathing No anxiety Nondistended abdomen Intake & Output: Intake & Output 10/24/20 10/25/20 10/25/20 21:59 05:59 13:59 Intake Total 240 300 350 Output Total 126 476 800 Balance 114 -176 -450 Weight 89.443 kg 87.6 kg Intake: IV 50 Rocephin 2 gm In Dextrose 5% in 50 Water 50 ml @ 100 mls/hr IV Q24H [facility] Rx#:[id number] Oral 240 300 300 Output: Void Amount 125 475 800 # of times incontinent of urine 1 1 Other: Meal Breakfast Percent of Meal Consumed 75% Feeding Ability Independent Urine Appearance Clear Clear Clear Urine Color Bright Yellow Pale Bright Yellow Urine Odor Normal Normal # Voids 1 1 OBJ DATA Labs CBC & Chem 7: 10/25/20 05:17 10/25/20 05:17 Labs: Abnormal Lab Results 10/25/20 10/25/20 10/24/20 05:17 05:17 05:28 RBC 3.50 L Hgb 10.1 L Hct 32.3 L RDW 15.6 H Plt Count MPV 10.5 H Neut % (Auto) Lymph % (Auto) Lymph # (Auto) Anion Gap 7.0 L BUN 48 H 45 H Creatinine 1.4 H 1.3 H Glucose 123 H 114 H Uric Acid 8.7 H 9.0 H Calcium 8.5 L Phosphorus 4.6 H Lactate Dehydrogenase C-Reactive Protein Albumin 2.7 L 2.8 L Albumin/Globulin Ratio 0.8 L 0.8 L 10/24/20 10/23/20 10/23/20 05:28 05:05 05:05 RBC 3.57 L 3.37 L Hgb 10.3 L 9.6 L Hct 32.5 L 30.9 L RDW 15.4 H 15.1 H Plt Count MPV 10.9 H 11.2 H Neut % (Auto) Lymph % (Auto) Lymph # (Auto) 1.39 L Anion Gap BUN 43 H Creatinine 1.3 H Glucose 138 H Uric Acid 8.8 H Calcium Phosphorus Lactate Dehydrogenase C-Reactive Protein Albumin 2.7 L Albumin/Globulin Ratio 0.8 L 10/22/20 10/22/20 04:55 04:55 RBC 3.41 L Hgb 9.8 L Hct 30.8 L RDW 14.9 H Plt Count 127 L MPV 10.7 H Neut % (Auto) 85.1 H Lymph % (Auto) 9.4 L Lymph # (Auto) 0.74 L Anion Gap BUN 35 H Creatinine 1.3 H Glucose 162 H Uric Acid 8.7 H Calcium Phosphorus Lactate Dehydrogenase 129 L C-Reactive Protein 12.20 H Albumin 2.8 L Albumin/Globulin Ratio 0.8 L Meds: Medications Acetaminophen (Acetaminophen 325 Mg Tablet) 650 mg PO Q4-6HP PRN; Protocol PRN Reason: Per Pain Protocol/Fever > 101 Hydrocodone Bitart/Acetaminophen (Hydrocodone/Apap 5/325mg Tablet) 1 - 2 tab PO Q4-6HP PRN; Protocol PRN Reason: Pain Last Admin: 10/25/20 02:07 Dose: 2 tab Documented by: Albuterol Sulfate (Albuterol Sulfate 2.5 Mg/3 Ml Nebulizer) 2.5 mg NEB Q4HP PRN PRN Reason: Shortness Of Breath Last Admin: 10/23/20 10:02 Dose: 2.5 mg Documented by: Albuterol/Ipratropium (Ipratropium/Albuterol Sulfate 1 Puff Inhaler) 1 puff INH Q4-6HP PRN PRN Reason: Wheezing Apixaban (Apixaban 5 Mg Tablet) 2.5 mg PO BID [facility] Last Admin: 10/25/20 08:37 Dose: 2.5 mg Documented by: Atorvastatin Calcium (Atorvastatin 40 Mg Tablet) 40 mg PO HS [facility] Last Admin: 10/24/20 21:01 Dose: 40 mg Documented by: Baclofen (Baclofen 10 Mg Tablet) 5 mg PO QDAY [facility] Last Admin: 10/25/20 08:37 Dose: 5 mg Documented by: Bisacodyl (Bisacodyl 10 Mg Supp.Rect) 10 mg [place] Q2-3DAYS PRN PRN Reason: Constipation Carvedil[facility] ([facility] 3.125 Mg [facility]t) [facility] Admin: 10/25/20 08:35 Dose: Not Given Documented by: Dextrose (Dextrose 50% 50 Ml Vial) 0 ml IV UD PRN PRN Reason: Hypoglycemia Diagnostic Test (Pha) (Accu-Chek 1 Each Strip) 1 each FS [facility] Last Admin: 10/25/20 11:07 Dose: 1 each Documented by: Docusate Sodium (Docusate Sodium 100 Mg Capsule) 100 mg PO BID [facility] Last Admin: 10/25/20 08:37 Dose: 100 mg Documented by: Furosemide (Furosemide 40 Mg Tablet) 40 mg PO BID@0600,1800 [facility] Glucose (Dextrose 31 Gm Oral.Susp) 15 gm PO PRN PRN PRN Reason: Hypoglycemia Guaifenesin/Codeine Phosphate (Guaifenesin/Codeine 10 Ml Udc) 10 ml PO Q4HP PRN PRN Reason: Cough Potassium Chloride 40 meq/ (Dextrose) 520 mls @ 130 mls/hr IV UD PRN PRN Reason: K+ = or < 3.5 Magnesium Sulfate (Magnesium Sulfate) 2 gm in 50 mls @ 50 mls/hr IV UD PRN PRN Reason: MG = or < 1.7 Ceftriaxone Sodium 2 gm/ (Dextrose) 50 mls @ 100 mls/hr IV Q24H [facility]; Protocol Last Infusion: 10/25/20 09:26 Dose: Infused Documented by: Acetaminophen (Ofirmev) 650 mg in 65 mls @ 130 mls/hr IV Q6HP PRN; Protocol PRN Reason: Per Pain Protocol/Fever > 101 Insulin Human Lispro (Insulin Lispro 1 Unit/0.01 Ml Unit) 0 unit SQ [facility]; Protocol Last Admin: 10/25/20 11:12 Dose: 1 units Documented by: Iron Carb/Multivit/[place]/Folic Acid (Multivit,Ther Iron,Ca,Fa & Min 1 Tablet) 1 tab PO DAILY [facility] Last Admin: 10/25/20 08:37 Dose: 1 tab Documented by: Lisinopril (Lisinopril 2.5 Mg Tablet) 2.5 mg PO DAILY [facility] Last Admin: 10/25/20 08:36 Dose: Not Given Documented by: Magnesium Hydroxide (Magnesium Hydroxide 30 Ml Oral.Susp) 30 ml PO DAILYP PRN PRN Reason: Constipation Melatonin (Melatonin 3 Mg Tablet) 6 mg PO [facility] Last Admin: 10/24/20 21:01 Dose: 6 mg Documented by: Metoprolol Tartrate (Metoprolol Tartrate 5 Mg/5 Ml Vial) 5 mg IV Q5M PRN PRN Reason: Heart Rate > 140 bpm Ondansetron HCl (Ondansetron 4 Mg Odt Tablet) 4 mg SL Q4-6HP PRN; Protocol PRN Reason: Nausea And Vomiting Ondansetron HCl (Ondansetron 4 Mg/2 Ml Vial) 4 mg IV Q4-6HP PRN; Protocol PRN Reason: Nausea And Vomiting Mometasone [Asmanex Hfa] 200 Mcg/Actuation Hfa 2 dose INH BID [facility] Last Admin: 10/25/20 08:36 Dose: Not Given Documented by: Polyethylene Glycol (Polyethylene Glycol 3350 17 Gm Packet) 17 gm PO DAILYP PRN PRN Reason: Constipation Potassium Chloride (Potassium Chloride 20 Meq Packet) 40 meq PO DAILYP PRN PRN Reason: K+ < 3.5 Potassium/Phosphorus/Sodium (Neutra Phos 1 Packet) 2 packet PO DAILY PRN PRN Reason: PHOS <2.5 Ropinirole HCl (Ropinirole 1 Mg Tablet) 4 mg PO TID [facility] Last Admin: 10/25/20 08:37 Dose: 4 mg Documented by: Senna/Docusate Sodium (Sennosides/Docusate Sodium 1 Tab Tablet) 1 tab PO [facility] Last Admin: 10/24/20 21:07 Dose: 1 tab Documented by: Sitagliptin Phosphate (Sitagliptin 100 Mg Tablet) 100 mg PO DAILY [facility] Last Admin: 10/25/20 08:37 Dose: 100 mg Documented by: Sodium Chloride (0.9 % Sodium Chloride 10 Ml Syringe) 10 ml IV Q8 [facility] Last Admin: 10/25/20 04:31 Dose: 10 ml Documented by: Tamsulosin HCl (Tamsulosin 0.4 Mg Capsule) 0.4 mg PO QDAY [facility] Last Admin: 10/25/20 08:37 Dose: 0.4 mg Documented by: Vitamin D (Vitamin D3 1,000 Unit Tablet) 1,000 unit PO QDAY [facility] Last Admin: 10/25/20 08:37 Dose: 1,000 unit Documented by: Zinc Sulfate (Zinc Sulfate 50 Mg Capsule) 50 mg PO DAILY [facility] Last Admin: 10/25/20 08:37 Dose: 50 mg Documented by: A/P Narrative A/P Narrative: * Acute heart failure now linically well compensated. Diastolic dysfunction with EF 55% on previous echo. Continue Coreg/diuretics/DINESH inhibitor * Community acquired pneumonia -clinical improvement noted on antibiotic coverage * Acute hypoxic respiratory failure - Clinical and radiological improvement noted. Wean as tolerated. Down to 1.5 L oxygen. * DM type II- continue basal prandial insulin/CC diet, blood sugars improving * Anticoagulation continue apixaban * CKD stage IIIb-stable avoid nephrotoxins * Hypertension/nursing lymphedema -stable on home dose Coreg/DINESH inhibitor/diuretics * History of COPD continue bronchodilators * Anxiety disorder-hold paroxetine due to QT prolongation until patient off azithromycin * Full code Plan * Continue antibiotic coverage * Continue to wean oxygen as tolerated * Pre-existing medical condition management on home meds * Directed therapies/nutrition support/early mobilization * SNF transfer a.m. Time Spent With Patient Time: Total time spent is greater than 50% in coordination of care (as documented) at patient's floor/unit and/or counseling patient: QUALITY Stroke Symptom Onset Unknown: No VTE Deep Vein Thrombosis/Pulmonary Embolism Present on Admission: No
[2020-10-25] MEDS: SENNOSIDES/DOCUSATE SODIUM 1 TAB TABLET PO SCH (22:16)
[2020-10-25] MEDS: MELATONIN 3 MG TABLET PO SCH (22:16)
[2020-10-25] MEDS: ATORVASTATIN 40 MG TABLET PO SCH (22:17)
[2020-10-26] MEDS: 0.9 % SODIUM CHLORIDE 10 ML SYRINGE IV SCH (05:21)
[2020-10-26] MEDS: FUROSEMIDE 40 MG TABLET PO SCH (05:21)
[2020-10-26 06:48] LABS: Basophils # (Auto) 0.03 K/mcL (0.00-0.20); Basophils % (Auto) 0.4 % (0.0-2.0); Eosinophils # (Auto) 0.19 K/mcL (0.00-0.70); Eosinophils % (Auto) 2.6 % (0.0-7.0); Hematocrit 33.6 % (41.0-55.0); Hemoglobin 10.4 g/dL (13.5-16.5); Lymphocytes % (Auto) 35.2 % (15.0-49.0); Mean Cell Volume 91.3 fL (80.0-100.0); Mean Platelet Volume 10.7 fL (7.4-10.4); Monocytes # (Auto) 0.49 K/mcL (0.10-0.90); Monocytes % (Auto) 6.6 % (1.0-12.0); Neutrophils % (Auto) 55.2 % (38.0-78.0); Platelet Count 154 K/mcL (140-440); RBC 3.68 M/mcL (4.50-5.90); Red Cell Distribution Width 15.4 % (11.5-14.5); WBC 7.4 K/mcL (4.5-11.0)
[2020-10-26 07:46] LABS: ALT/SGPT 18 U/L (<40); AST/SGOT 21 U/L (<40); Albumin 2.9 gm/dL (3.2-5.2); Albumin/Globulin Ratio 0.8 (1.0-2.3); Alkaline Phosphatase 69 U/L (39-117); Bilirubin,Direct < 0.2 mg/dL (0-0.3); Bilirubin,Total 0.2 mg/dL (0.1-1.0); Blood Urea Nitrogen 48 mg/dL (8-23); Calcium 8.9 mg/dL (8.6-10.4); Carbon Dioxide 27 mmol/L (22-30); Chloride 97 mmol/L (96-108); Globulin 3.6 gm/dL (2.2-3.7); Glomerular Filtration Rate 55; Glucose 109 mg/dL (70-105); Lactate Dehydrogenase 152 U/L (135-225); Phosphorous 3.5 mg/dL (2.5-4.5); Triglycerides 71 mg/dL (<150); Uric Acid 8.6 mg/dL (2.5-8.0)
[2020-10-26] MEDS ORDERED: PARoxetine 20 MG TABLET PO SCH (09:00)
[2020-10-26] MEDS: cefTRIAXone 2 GM in DEXTROSE 5% IN WATER 50 ML IV SCH (09:04)
[2020-10-26] MEDS: rOPINIRole 1 MG TABLET PO SCH (09:05)
[2020-10-26] MEDS: INSULIN LISPRO 1 UNIT/0.01 ML UNIT SQ SCH ×2 (09:05→11:40)
[2020-10-26] MEDS: TAMSULOSIN 0.4 MG CAPSULE PO SCH (09:07)
[2020-10-26] MEDS: sitaGLIPtin 100 MG TABLET PO SCH (09:07)
[2020-10-26] MEDS: ZINC SULFATE 50 MG CAPSULE PO SCH (09:07)
[2020-10-26] MEDS: MULTIVIT,THER IRON,CA,FA & MIN 1 TABLET PO SCH (09:08)
[2020-10-26] MEDS: DOCUSATE SODIUM 100 MG CAPSULE PO SCH (09:08)
[2020-10-26] MEDS: APIXABAN 5 MG TABLET PO SCH (09:08)
[2020-10-26] MEDS: VITAMIN D3 1,000 UNIT TABLET PO SCH (09:09)
[2020-10-26] MEDS: BACLOFEN 10 MG TABLET PO SCH (09:09)
[2020-10-26] MEDS: MOMETASONE INH SCH (09:10)
[2020-10-26] MEDS: CARVEDILOL 3.125 MG TABLET PO SCH (09:17)
[2020-10-26] MEDS: LISINOPRIL 2.5 MG TABLET PO SCH (09:17)
--- NOTE | 2020-10-26 10:45 | Discharge Summary ---
Discharge Provider Provider Patient information: Note initiated : 10/26/20 at 10:41 am Service Date, if different from initiated Date: [] Patient: Chente Whitfield a 70 y/o M admitted on 10/21/20 for Fever. Discharge diagnosis * Acute heart failure with preserved EF clinically resolved and well compensated. EF 55% on previous echo. Continue Coreg/diuretics/DINESH inhibitor * Community acquired pneumonia -clinical resolution noted on antibiotic coverage, continue additional 2 days oral antibiotic * Acute hypoxic respiratory failure - Clinical and radiological improvement noted. Now on room air * DM type II- continue basal prandial insulin/CC diet, blood sugars improving * Anticoagulation continue apixaban * CKD stage IIIb-stable avoid nephrotoxins * Hypertension/nursing lymphedema -stable on home dose Coreg/DINESH inhibitor/diuretics * History of COPD continue bronchodilators * Anxiety disorder-restart SSRI Brief hospital course Mr. Whitfield is a 70 year old M resident of [facility] who presents to the ER with increasing weakness confusion, failure to thrive and high-grade fever. Initial work-up was consistent with Covid pneumonia, patient was started on steroids/bronchodilators/crystalloids and subsequently hospitalist service consulted. Patient is currently on 2 L oxygen maintaining sats 95. T-max 105.4. Troponin I 06, BNP 2323, initial GCS 7 At the time of my evaluation patient remains groggy and drowsy. Unable to provide history. Most of the history was obtained from review of medical records and ER physician. From review of medical records patient carries a history of chronic lymphedema/CKD stage III/DJD/HTN/DM type II/anxiety disorder/BPH /-patient doing better. No overnight events. Currently on 1-1/2 L oxygen. Remdesivir discontinued. Continues steroids/diuretics/antibiotic coverage in setting of pneumonia. Echocardiogram 09/30- 55% EF. Mycoplasma and strep pneumo negative. Clinically improving. Continue gentle diuresis/COVID-19 treatment. Wean oxygen as tolerated 10/23-patient doing a lot better. DC dexamethasone. Interval chest imaging to CHF/infiltrate. Continue antibiotic coverage. No overnight events. Labs and hemodynamics stable. Contact precaution discontinued. Tolerating diet and physical therapies. No overnight fever chills, particular diarrhea 10/24-patient remarkably better. Now on 3 L oxygen. Ambulating tolerating diet and feels a lot better. Case management coordinating SNF transfer likely Monday. No overnight events or concerns per staff. Continue antibiotic coverage. Stable labs and hemodynamics. Creatinine 1.3, hemoglobin 10.3, cultures negative so far. Covid PCR negative. COVID-19 treatment discontinued 10/25-patient doing better. Awaiting SNF transfer. Stable hemodynamics. On antibiotic coverage. Tolerating diet and physical therapies. No overnight fever including fever chills nausea vomiting or shortness of breath. No concerns per staff. 10/26-patient doing remarkably well. No overnight events. Stable labs and hemodynamics. Ambulating. Continue additional 2 days oral antibiotics. Stable labs and hemodynamics. Hemoglobin 10.4. Creatinine at baseline 1.3. Hypoxia resolved now on room air. Date of admission: 10/21/20 13:24 Discharge date: 10/26/20 Primary care physician: Larry Dean Consults: 10/21/20 Consult to Physician [CONS] Stat Comment: Consulting Provider: Rober Choe Reason For Exam: Physician to Consult Discharge Meds Discharge Medications Home Medications Combivent Respimat 1 puff INHALATION QIDP PRN 10/21/20 [History Confirmed 10/22/20 Last Taken Unknown] Eliquis 5 mg PO BID 10/21/20 [History Confirmed 10/22/20 Last Taken Unknown] Fleet Enema 118 ml CO ONCE PRN 10/21/20 [History Confirmed 10/22/20 Last Taken Unknown] acetaminophen [Tylenol] 650 mg PO Q6H PRN 10/21/20 [History Confirmed 10/22/20 Last Taken Unknown] baclofen 5 mg PO Q8HP PRN 10/21/20 [History Confirmed 10/22/20 Last Taken Unknown] bisacodyl [Dulcolax (bisacodyl)] 10 mg CO ONCE 10/21/20 [History Confirmed 10/21/20 Last Taken Unknown] carvedilol 3.125 mg PO BIDCC 10/21/20 [History Confirmed 10/22/20 Last Taken Unknown] cholecalciferol (vitamin D3) [Vitamin D3] 25 mcg PO QDAY 10/21/20 [History Confirmed 10/22/20 Last Taken Unknown] furosemide [Lasix] 40 mg PO BID 10/21/20 [History Confirmed 10/22/20 Last Taken Unknown] glucagon 1 mg PRN PRN 10/21/20 [History Confirmed 10/22/20 Last Taken Unknown] hydrocodone-acetaminophen 2 tab PO Q4HP PRN 10/21/20 [History Confirmed 10/22/20 Last Taken Unknown] insulin lispro 0 unit SUBCUT PRN PRN 10/21/20 [History Confirmed 10/21/20 Last Taken Unknown] lisinopril 2.5 mg PO QDAY 10/21/20 [History Confirmed 10/22/20 Last Taken Unknown] magnesium hydroxide [Milk of Magnesia] 30 ml PO PRN PRN 10/21/20 [History Confirmed 10/22/20 Last Taken Unknown] melatonin 6 mg PO HS 10/21/20 [History Confirmed 10/22/20 Last Taken Unknown] metformin 500 mg PO BIDCC 10/21/20 [History Confirmed 10/22/20 Last Taken Unkno wn] ondansetron HCl 8 mg PO Q8HP PRN 10/21/20 [History Confirmed 10/22/20 Last Taken Unknown] paroxetine HCl 30 mg PO DAILY 10/21/20 [History Confirmed 10/22/20 Last Taken Unknown] ropinirole 4 mg PO TID 10/21/20 [History Confirmed 10/22/20 Last Taken Unknown] sodium polystyrene sulfonate See Rx Instructions .ROUTE .COMPLEX 10/21/20 [History Confirmed 10/22/20 Last Taken Unknown] tamsulosin 0.4 mg PO QDAY 10/21/20 [History Confirmed 10/22/20 Last Taken Unknown] Asmanex HFA 2 puff INHALATION BID 10/22/20 [History Confirmed 10/22/20 Last Taken Unknown] atorvastatin 40 mg PO HS 10/22/20 [History Confirmed 10/22/20 Last Taken Unknown] zinc 50 mg PO QDAY 10/22/20 [History Confirmed 10/22/20 Last Taken Unknown] cefdinir 300 mg PO BID #5 cap 10/26/20 [Rx Last Taken Unknown] COURSE Hospital Course Hospital course: . Discharge diagnosis: . Time Spent with Patient Time attestation: Total time spent providing and/or coordinating discharge services: EXAM Constitutional Vitals: Temp Pulse Resp BP Pulse Ox 97.9 F 74 18 109/70 93 10/26/20 06:57 10/26/20 06:57 10/26/20 06:57 10/26/20 06:57 10/26/20 06:57 Discharge Data Data Completed and Pending Labs on day of discharge: Labs from last 24 hours 10/26/20 10/26/20 05:19 05:19 WBC 7.4 RBC 3.68 L Hgb 10.4 L Hct 33.6 L MCV 91.3 MCH 28.3 MCHC 31.0 RDW 15.4 H Plt Count 154 MPV 10.7 H Neut % (Auto) 55.2 Lymph % (Auto) 35.2 Clarke % (Auto) 6.6 Eos % (Auto) 2.6 Baso % (Auto) 0.4 Lymph # (Auto) 2.60 Clarke # (Auto) 0.49 Eos # (Auto) 0.19 Baso # (Auto) 0.03 Absolute Neutrophils 4.08 Sodium 134 Potassium 4.5 Chloride 97 Carbon Dioxide 27 Anion Gap 10.0 BUN 48 H Creatinine 1.3 H GFR Calculation 55 Glucose 109 H Uric Acid 8.6 H Calcium 8.9 Phosphorus 3.5 Magnesium 2.3 Total Bilirubin 0.2 Direct Bilirubin < 0.2 GGT 17 AST 21 ALT 18 Alkaline Phosphatase 69 Lactate Dehydrogenase 152 Total Protein 6.5 Albumin 2.9 L Globulin 3.6 Albumin/Globulin Ratio 0.8 L Triglycerides 71 Discharge Plan Patient/Caregiver Discharge Instructions Activity: increase activity as tolerated Diet: Consistent Carbohydrate Activity Restrictions/Additional Instructions: Continue antibiotics for additional 48 hours Return to ER if worsening fever chills nausea vomiting Continue PT OT ST eval and treatment Follow-up PCP in 5 to 7 days Prescriptions: New cefdinir 300 MG capsule 300 mg PO BID Qty: 5 RF: 0 Continued Combivent Respimat 20-100 mcg/actuation Mist 1 puff INHALATION QIDP PRN (Reason: Wheezing) RF: 0 furosemide [Lasix] 40 mg Tablet 40 mg PO BID RF: 0 hydrocodone-acetaminophen 5-325 mg tablet 2 tab PO Q4HP PRN (Reason: Pain (Scale Score 7-10)) RF: 0 carvedilol 3.125 mg tablet 3.125 mg PO BIDCC RF: 0 sodium polystyrene sulfonate 15 gram/60 mL Suspension See Rx Instructions .ROUTE .COMPLEX RF: 0 paroxetine HCl 30 mg tablet 30 mg PO DAILY RF: 0 baclofen 5 mg Tablet 5 mg PO Q8HP PRN (Reason: Pain) RF: 0 lisinopril 2.5 mg Tablet 2.5 mg PO QDAY RF: 0 ropinirole 4 mg Tablet 4 mg PO TID RF: 0 Fleet Enema 19-7 gram/118 mL Enema 118 ml CO ONCE PRN (Reason: Constipation) RF: 0 bisacodyl [Dulcolax (bisacodyl)] 10 mg Suppository 10 mg CO ONCE RF: 0 magnesium hydroxide [Milk of Magnesia] 400 mg/5 mL Suspension 30 ml PO PRN PRN (Reason: Constipation) RF: 0 glucagon 1 mg Kit 1 mg PRN PRN (Reason: blood sugar) RF: 0 metformin 500 mg Tablet 500 mg PO BIDCC RF: 0 ondansetron HCl 8 mg Tablet 8 mg PO Q8HP PRN (Reason: Nausea) RF: 0 acetaminophen [Tylenol] 325 mg Tablet 650 mg PO Q6H PRN (Reason: Pain) RF: 0 tamsulosin 0.4 mg Capsule 0.4 mg PO QDAY RF: 0 insulin lispro 100 unit/mL Cartridge 0 unit SUBCUT PRN PRN (Reason: blood sugar) RF: 0 cholecalciferol (vitamin D3) [Vitamin D3] 25 mcg (1,000 unit) Tablet 25 mcg PO QDAY RF: 0 Eliquis 2.5 mg Tablet 5 mg PO BID RF: 0 melatonin 12 mg Tablet 6 mg PO HS RF: 0 zinc 50 mg Tablet 50 mg PO QDAY RF: 0 atorvastatin 40 mg tablet 40 mg PO HS RF: 0 Asmanex HFA 200 mcg/actuation HFA aerosol inhaler 2 puff INHALATION BID RF: 0 Follow Up Plan Follow up with: No,PCP [Referring] - Patient Disposition: Xfer SNF Rehab Potential: Fair I certify that the patient requires SNF services: Yes Overall status at discharge: patient is progressing back to baseline Discharge Orders: Discharge Order (Routine); Ordered 10/26/20 Ordered By: Rober MURO VTE Deep Vein Thrombosis/Pulmonary Embolism Present on Admission: No
== END 2020-10-26 12:15 | DRG 291 ==
LOC: ED 09:24 → ICU 13:24
PROVIDERS: ADMIT Internal Medicine; ATTEND Internal Medicine